=== PATIENT | female | born 1950 | race Caucasian/White ===

== ENCOUNTER 2019-08-13 11:55 | Emergency (ER) | payer MEDICARE, BC, SELFPAY ==
[2019-08-13 11:57] VITALS: BP 146/87; PULSE 83; RESP 18; TEMP 36.3; O2SAT 96; BMI 27.3
[2019-08-13] MEDS: HYDROcodone Bitartrate/Apap 5/325 Tablet PO (12:12)
--- NOTE | 2019-08-13 12:14 | ED.VISSUMM ---
- ER Visit Summary Date of Service: 08/13/19 Chief Complaint: Fall History of Present Illness: The patient is a 69 F presenting after fall. Patient was walking on a sidewalk and missed a step and fell onto her right side. She did not hit her head or lose consciousness. She complains of right shoulder and right hip pain. She has been able to ambulate. Physical Examination: Vitals are stable. Patient is afebrile. Alert no acute distress. HEENT exam is unremarkable. Neck is nontender Lungs are clear and equal bilaterally. Heart is regular rate and rhythm. Abdomen is soft nontender nondistended. Extremities diffuse right shoulder tenderness, mild right hip tenderness. Abrasion right elbow with no bony tenderness. Skin is warm and dry. No focal neurologic deficit. Remainder of exam is unremarkable. Emergency Department Course and Treatment: Patient declined tetanus immunization. Abrasion was cleaned and dressed. Right hip x-ray shows age consistent right hip arthrosis, no demonstrated fracture or suspicious osseous lesion. Right shoulder x-ray shows acute nondisplaced right humeral head fracture suspected but not confirmed. Glenohumeral and acromioclavicular joint arthrosis. Patient was given a sling. She is given prescription for [place]. She lives in [place] and will follow-up with her primary care physician for orthopedic referral. Advised return to ED for worsening complaints. Disposition: Discharge home Impression: Right nondisplaced humeral head fracture status post mechanical fall This note was generated with [employer] dictation software. It may contain incorrect words, spelling, and punctuation that were not noted in review of the chart prior to signing ED Disposition - Plan for ED Patient: Referrals: Laura Robin,Out of [Primary Care Provider] -
--- NOTE | 2019-08-13 12:38 | RAD_ITS ---
STUDY: X-RAY - RIGHT SHOULDER REASON FOR EXAM: Female, 69 years old. FALL ON STEPS WITH INJURY TO RIGHT SHOULDER/ARM AND RIGHT HIP. ABLE TO AMBULATE APPROPRIATELY. UNABLE TO MOVE/LIFT RIGHT ARM TECHNIQUE: 2 view(s) of the shoulder. COMPARISON: None. FINDINGS: There is mild degenerative arthrosis of the glenohumeral articulation. There is degenerative arthrosis of the acromioclavicular joint without inferior osseous spur formation. Normal acromion. There is demineralization of the humerus and visualized osseous structures. There is cortical irregularity in the lateral aspect of the humeral head with associated contour irregularity suggesting an acute fracture is present. The soft tissue structures are unremarkable. Normal visualized pulmonary apex. RAD/Shoulder min 2 Views IMPRESSION: Acute nondisplaced right humeral head fracture suspected but not confirmed Glenohumeral and acromioclavicular joint arthrosis Electronically Signed: Oscar Dickey MD at 12:54 EDT , Service support ,
--- NOTE | 2019-08-13 12:38 | RAD_ITS ---
STUDY: X-RAY - PELVIS AND RIGHT HIP REASON FOR EXAM: Female, 69 years old. Pain after fall TECHNIQUE: 3 views of the pelvis and hip. COMPARISON: None. FINDINGS: There is a non-specific bowel gas pattern. Normal visualized soft tissue structures. Normal bilateral iliac wings, sacroiliac joints and visualized sacrum. Normal bilateral superior and inferior pubic rami. Normal pubic symphysis. Normal bilateral ischial tuberosities. Normal visualized femoral head. Normal acetabulum. There is mild articular joint space narrowing of the hip. Limited AP view of the left hip shows similar arthritic changes RAD/HIP, UNI W/ Pelvis 2-3 Views IMPRESSION: Age consistent right hip arthrosis, no demonstrated fracture or suspicious osseous lesion Electronically Signed: Oscar Dickey MD at 12:52 EDT , Service support ,
--- NOTE | 2019-08-13 13:39 | DCINST.ED_ITS ---
ED Disposition - Plan for ED Patient: Instructions: ED Mechanical Fall, ED Fracture Upper Extremity Prescriptions: Hydrocodone Bitart/Apap 5-325 [[place] 5MG-325MG] 1 tablet PO Q6H PRN PRN 3 Days #10 tablet PRN Reason: Pain Referrals: [facility],Out of [Primary Care Provider] -
== END 2019-08-13 14:10 | disposition home or self-care (01) ==
LOC: ED 13:54
PROVIDERS: Emergency Provider Emergency Medicine
DX: S42.301A Unspecified fracture of shaft of humerus, right arm, initial encounter for closed fracture (principal); W10.9XXA Fall (on) (from) unspecified stairs and steps, initial encounter
CPT/HCPCS: 73030; 73502; 99283

== ENCOUNTER 2021-11-19 09:45 | Emergency (ER) | payer MEDICARE, BC, SELFPAY ==
[2021-11-19 09:46] VITALS: BP 113/44; PULSE 77; RESP 18; TEMP 36.6; O2SAT 98; BMI 24.5
--- NOTE | 2021-11-19 10:13 | EDS_ITS ---
HPI History of Present Illness HPI Narrative: Patient presents with right hip pain that began after a fall last night. Patient states she was able to get up and ambulate after the fall last night. Patient states she slipped on sauce that she spilled onto a wooden floor. Patient denies any head injury or loss of consciousness. Patient states her pain is better with rest. Patient states her pain is worse whenever she tries to move or ambulate. Patient denies any paresthesias or weakness. Patient denies any other injuries. Chief Complaint: Lower Extremity Injury Informant: patient Occured/Mechanism Mechanism/Context: Yes fall Onset/Context/Timing Onset: Yesterday Context: Sudden Onset Timing: Continuous Quality of Pain: Sharp Location: Right hip Worsened by: Movement, ambulation Relieved by: Rest Associated Symptoms Associated Symptoms: Negative for Parasthesia, Weakness or Loss of Funtion PFSH [facility] Medical History (Updated 11/19/21 @ 11:[address] Quinten Deleon DO) Afib Congestive heart failure Diabetes Hypercholesteremia Hypertension Hypertension Home Medications apixaban 5 mg tablet (Eliquis) 5 mg PO DAILY 11/19/21 [History Last Taken Unknown] atorvastatin 20 mg tablet 20 mg PO QHS 11/19/21 [History Last Taken Unknown] carvedilol 3.125 mg tablet 3.125 mg PO DAILY 11/19/21 [History Last Taken Unknown] carvedilol 6.25 mg tablet 6.25 mg PO DAILY 11/19/21 [History Last Taken Unknown] fenofibrate 160 mg tablet 160 mg PO DAILY 11/19/21 [History Last Taken Unknown] furosemide 40 mg tablet 40 mg PO DAILY 11/19/21 [History Last Taken Unknown] irbesartan 300 mg tablet 300 mg PO DAILY 11/19/21 [History Last Taken Unknown] Allergy/AdvReac Type Severity Reaction Status Date / Time No Known Allergies Allergy Verified 11/19/21 09:48 Surgical History (Updated 11/19/21 @ 10:[address] Quinten Deleon DO) History of herniorrhaphy Hx of cholecystectomy Hx of heart artery stent Hx of kyphoplasty Social History Smoking Status: Never smoker ROS ROS ED Constitutional Constitutional ED: Denies chills or fever(s) Eyes Eyes: Denies blurry vision or change in vision ENT ENT ED: Denies rhinorrhea or sore throat Cardiovascular Cardiovascular: Denies chest pain or palpitations Respiratory/Chest Respiratory/Chest: Denies cough or dyspnea Gastrointestinal Gastrointestinal: Denies nausea or vomiting Genitourinary Genitourinary ED: Denies dysuria or hematuria Musculoskeletal Musculoskeletal: Denies back pain or neck pain Integumentary Denies abscess or rash Neurologic Neurologic: Denies headache(s) or weakness Allergic/Immunologic Allergic/Immunologic ED: Denies mouth swelling or urticaria EXAM Physical Exam Const Vital Signs: 11/19/21 09:46 Temperature 97.9 F Temperature Source Temporal Pulse Rate 77 Respiratory Rate 18 Blood Pressure 113/44 L Blood Pressure Mean 67 Pulse Ox 98 Oxygen Delivery Method Room Air Positive well nourished and well developed General Appearance ED: well developed and NAD HEENT Reports moist mucous membranes Neck full ROM and supple Extremity Extremity Narrative: There is tenderness over the posterior and lateral aspects of the right hip. There is no obvious deformity noted. Range of motion was limited in all motions of the right hip secondary to pain. Pedal pulses are equal bilaterally. Sensation was intact to light touch bilaterally in the lower extremities. Strength is 5/5 bilaterally in the lower extremities. Neuro oriented x3, CN's II-XII intact bilaterally, moves all extremities and no sensory deficits noted Sensorium / Orientation: alert Motor Exam: strength 5/5 throughout Psych mental status grossly normal MDM MDM MDM Narrative Medical decision making narrative: Patient was given injection of morphine here. X-rays of the right hip were obtained. There are 3 views. On my interpretation, there is no acute fracture or dislocation. There are some degenerative changes noted. There is a questionable old avulsion off the greater trochanter. Radiologist also interpreted the x-ray and agrees. Patient was able to ambulate here in the emergency department without difficulty. Patient was instructed to use ice. Patient was instructed to use Tylenol or ibuprofen as needed for pain. Patient was instructed to follow-up with her primary care physician in 5 to 7 days. Patient understood and was agreeable with the plan. All questions were answered. Radiography Diagnostic Testing: Clinical Impression(s) from Imaging Studies Hip/Pelvis X-Ray 11/19/21 10:17 IMPRESSION: Spurring with mild irregularity and possible small avulsion of the greater trochanter of the proximal femur. Electronically Signed: Chapincito Olvera MD at 10:55 EDT , Discharge Plan Triage Chief Complaint: Lower Extremity Injury ED Provider: Quinten Deleon Dx/Rx/DC Orders Clinical Impression: Contusion of right hip, initial encounter, Fall Instructions: ED Hip Contusion Prescriptions: No Action furosemide 40 mg tablet 40 mg PO DAILY carvedilol 6.25 mg tablet 6.25 mg PO DAILY atorvastatin 20 mg tablet 20 mg PO QHS carvedilol 3.125 mg tablet 3.125 mg PO DAILY irbesartan 300 mg tablet 300 mg PO DAILY fenofibrate 160 mg tablet 160 mg PO DAILY Eliquis 5 mg tablet 5 mg PO DAILY Primary Care Provider: Care Physician,No Primary Referrals: Care Physician,No Primary [Primary Care Provider] - Doctor,Your [Non-Staff] - 5-7 Days Disposition Disposition: Home, Self Care
--- NOTE | 2021-11-19 10:17 | RAD_ITS ---
STUDY: X-RAY - PELVIS AND RIGHT HIP REASON FOR EXAM: Female, 71 years old. Injury/Pain TECHNIQUE: 3 views of the pelvis and hip. COMPARISON: August 13, 2019 FINDINGS: There is a normal bowel gas pattern. Normal visualized soft tissue structures. There is diffuse demineralization of the osseous structures. Normal bilateral iliac wings, sacroiliac joints and visualized sacrum. Normal bilateral superior and inferior pubic rami. Normal pubic symphysis. Normal bilateral ischial tuberosities. Normal visualized femoral head. There is mild spurring the mild irregularity of the greater trochanter. Normal acetabulum. Normal hip joint. RAD/HIP, UNI W/ Pelvis 2-3 Views IMPRESSION: Spurring with mild irregularity and possible small avulsion of the greater trochanter of the proximal femur. Electronically Signed: Chapincito Olvera MD at 10:55 EDT ,
[2021-11-19] MEDS: Morphine 4 MG/ML Syringe IM (10:22)
== END 2021-11-19 11:45 | disposition home or self-care (01) ==
PROVIDERS: Emergency Provider Emergency Medicine; Visit Provider Emergency Medicine
DX: S70.01XA Contusion of right hip, initial encounter (principal); I11.0 Hypertensive heart disease with heart failure; I50.9 Heart failure, unspecified; I48.91 Unspecified atrial fibrillation; E78.00 Pure hypercholesterolemia, unspecified; Z79.01 Long term (current) use of anticoagulants; Z79.899 Other long term (current) drug therapy; W19.XXXA Unspecified fall, initial encounter; Z95.5 Presence of coronary angioplasty implant and graft
CPT/HCPCS: 96372; 99282; 73502

== ENCOUNTER 2021-11-20 21:55 | Inpatient (IN) | payer MEDICARE, BC, SELFPAY ==
[2021-11-20 21:56] VITALS: BP 118/57; PULSE 65; RESP 16; TEMP 36.7; O2SAT 98; BMI 25.5
--- NOTE | 2021-11-20 22:29 | CT_ITS ---
EXAM: CT PELVIS WITHOUT INTRAVENOUS CONTRAST CLINICAL INDICATION: fall - right pelvis/hip pain -- please scan through lesser trochanter TECHNIQUE: Helically acquired images were obtained of the pelvis without intravenous contrast. This CT exam was performed using one or more of the following dose reduction techniques: automated exposure control, adjustment of the mA and/or kV according to patient size, and/or use of iterative reconstruction technique. This report was created using [employer] report generation technology. COMPARISON: Plain film from 11/19/2021 FINDINGS: BOWEL: Unremarkable as visualized. No bowel distention. No focal inflammatory change. APPENDIX: No evidence of acute appendicitis. INTRAPERITONEAL SPACE: Unremarkable. No ascites or other fluid collection. No free air. BLADDER: Unremarkable. REPRODUCTIVE: Unremarkable as visualized. No mass. BONES/JOINTS: Probable tiny avulsion fracture from the tip of the greater trochanter of the proximal right femur. No suspicious lytic or blastic abnormality. SOFT TISSUES: Large intramuscular hematoma posterior to the right hip within the gluteal musculature, measuring approximately 11.5 x 8.6 x 6.1 cm. No pelvic wall hernia. LYMPH NODES: Unremarkable. No enlarged lymph nodes. CT/Pelvis without IV Contrast IMPRESSION: 1. Large intramuscular hematoma posterior to the right hip within the gluteal musculature, measuring approximately 11.5 x 8.6 x 6.1 cm. 2. Probable tiny avulsion fracture from the tip of the greater trochanter of the proximal right femur. Electronically Signed: Kye Cervantes MD at 23:08 EDT ,
--- NOTE | 2021-11-20 22:31 | EX.ED.DYSGE1 ---
HPI History of Present Illness Chief Complaint: Lower Extremity Injury Informant: patient Onset/Context/Timing Onset: Days (2 days ago) Context: Gradual Onset Timing: Waxes and wanes Current Severity: Moderate Maximum Severity: Severe Narrative Narrative: Patient presents secondary to continued right hip pain. She fell 2 days ago landing on her right hip. She was seen in the emergency room yesterday where x-rays showed a possible avulsion fracture off the greater trochanter. She was able to ambulate with her walker. She states since going home she continues to have severe pain in her right hip making it difficult for her to ambulate and get around. She tried ibuprofen today without improvement. [facility] Medical History Afib Congestive heart failure Diabetes Hypercholesteremia Hypertension Home Medications apixaban 5 mg tablet (Eliquis) 5 mg PO DAILY 11/19/21 [History Last Taken Unknown] atorvastatin 20 mg tablet 20 mg PO QHS 11/19/21 [History Last Taken Unknown] carvedilol 3.125 mg tablet 3.125 mg PO DAILY 11/19/21 [History Last Taken Unknown] carvedilol 6.25 mg tablet 6.25 mg PO DAILY 11/19/21 [History Last Taken Unknown] fenofibrate 160 mg tablet 160 mg PO DAILY 11/19/21 [History Last Taken Unknown] furosemide 40 mg tablet 40 mg PO DAILY 11/19/21 [History Last Taken Unknown] irbesartan 300 mg tablet 300 mg PO DAILY 11/19/21 [History Last Taken Unknown] Allergy/AdvReac Type Severity Reaction Status Date / Time No Known Allergies Allergy Verified 11/20/21 21:58 Surgical History History of herniorrhaphy Hx of cholecystectomy Hx of heart artery stent Hx of kyphoplasty Social History Smoking Status: Never smoker ROS ROS ED Constitutional Constitutional ED: Denies chills or fever(s) Eyes Eyes: Denies change in vision or discharge from eye(s) ENT ENT ED: Denies discharge from eye(s), rhinorrhea or sore throat Cardiovascular Cardiovascular: Denies chest pain or palpitations Respiratory/Chest Respiratory/Chest: Denies cough or dyspnea Gastrointestinal Gastrointestinal: Denies abdominal pain, diarrhea, nausea or vomiting Genitourinary Genitourinary ED: Denies difficulty urinating or dysuria Musculoskeletal Musculoskeletal: Reports extremity pain; Denies back pain Integumentary Denies Abrasions or rash Neurologic Neurologic: Denies headache(s) or weakness Psychiatric Psychiatric: Denies anxiety or depression Allergic/Immunologic Allergic/Immunologic ED: Denies lip swelling or urticaria EXAM Physical Exam Const Vital Signs: 11/20/21 21:56 Temperature 98.1 F Temperature Source Temporal Pulse Rate 65 Respiratory Rate 16 Blood Pressure 118/57 L Blood Pressure Mean 77 Pulse Ox 98 Oxygen Delivery Method Room Air Positive well nourished and well developed General Appearance ED: well developed HEENT Reports normocephalic and head/scalp atraumatic Eyes PERRL and EOMs intact bilaterally Neck supple Chest Wall inspection of chest normal and palpation of chest normal Resp normal respiratory effort and clear to auscultation bilaterally Cardio regular rate and regular rhythm GI normal to inspection, nondistended, normoactive bowel sounds GI Narrative: Tenderness palpation over the right side of the pelvis. No masses noted. No ecchymosis noted on the abdominal wall. Palpation: soft Extremity Extremity Narrative: Tender palpation over the greater trochanter of the right hip. Equal leg lengths. Strong distal pulses and normal sensation. Patient does have slow purposeful movement of her leg. Neuro oriented x3 and no sensory deficits noted Sensorium / Orientation: alert Psych mental status grossly normal Skin no rashes or lesions noted MDM MDM MDM Narrative Medical decision making narrative: Patient was given a dose of Dilaudid for pain control. Lab work obtained along with a CT scan of the pelvis and right hip. Lab Data Attestation: I reviewed the patient's lab results. Labs: Laboratory Results - last 24 hr 11/20/21 11/20/21 11/20/21 22:47 22:47 22:47 WBC 6.0 RBC 2.39 L Hgb 6.9 L Hct 21.7 L MCV 90.8 MCH 28.9 MCHC 31.8 L RDW Std Deviation 51.6 H RDW Coeff of Kateryna 15.6 H Plt Count 312 MPV 9.1 Immature Gran % (Auto) 0.700 Neut % (Auto) 71.3 H Lymph % (Auto) 18.7 L Stevens % (Auto) 8.3 Eos % (Auto) 0.7 Baso % (Auto) 0.3 Absolute Neuts (auto) 4.3 Absolute Lymphs (auto) 1.13 Nucleated RBC % 0 PT 18.0 H INR 1.5 APTT 29.1 Sodium 142 Potassium 4.6 Chloride 107 Carbon Dioxide 23.0 Anion Gap 12 BUN 66 H Creatinine 1.56 H Estim Creat Clear Calc 24.96 Est GFR (MDRD) Af Amer 42 L Est GFR (MDRD) Non-Af 35 L BUN/Creatinine Ratio 42.3 H Glucose 275 H Calcium 10.1 Radiography Diagnostic Testing: Clinical Impression(s) from Imaging Studies Pelvis CT 11/20/21 22:29 IMPRESSION: 1. Large intramuscular hematoma posterior to the right hip within the gluteal musculature, measuring approximately 11.5 x 8.6 x 6.1 cm. 2. Probable tiny avulsion fracture from the tip of the greater trochanter of the proximal right femur. Electronically Signed: Kye Cervantes MD at 23:08 EDT , Treatment and Re-Evaluation Narrative: Patient's white count is normal at 6.0. Hemoglobin is 6.9 and hematocrit is 21.7. She has not had previous labs at this hospital but I was able to find some prior labs on [facility]. On May 31 of this year her hemoglobin was 10.1. PT is 18.0 and INR is 1.5. PTT is normal. Chemistry studies significant for BUN of 66 and creatinine 1.56. Glucose is 275. Patient is a known diabetic. CT scan of the pelvis reveals a large intramuscular hematoma in the right hip measuring 11.5 x 8.6 x 6.1 cm. There is probably a tiny avulsion fracture from the tip of the greater trochanter. Patient's primary pain is over the right gluteal region. EKG is obtained and patient is currently in sinus rhythm 82 bpm with no ischemia. Left bundle branch block is noted. Patient states that she has her heart rhythm checked frequently and she has not been in [facility] this year. I did recommend hospital admission for pain control as well as holding her Eliquis and repeating her CBC. I will speak with the hospitalist. Discharge Plan Triage Chief Complaint: Lower Extremity Injury ED Provider: Gabriella Norris Dx/Rx/DC Orders Clinical Impression: Fall, Hematoma, Anemia, Acute pain of right hip Prescriptions: No Action furosemide 40 mg tablet 40 mg PO DAILY carvedilol 6.25 mg tablet 6.25 mg PO DAILY atorvastatin 20 mg tablet 20 mg PO QHS carvedilol 3.125 mg tablet 3.125 mg PO DAILY irbesartan 300 mg tablet 300 mg PO DAILY fenofibrate 160 mg tablet 160 mg PO DAILY Eliquis 5 mg tablet 5 mg PO DAILY Primary Care Provider: Care Physician,No Primary Referrals: Care Physician,No Primary [Primary Care Provider] - Disposition Disposition: Acute Care Hospital [facility]
[2021-11-20] MEDS: Ondansetron 4 MG/2 ML Vial IV (22:38)
[2021-11-20] MEDS: HYDROmorphone 1 MG/ML Syringe 0.5 MG IV (22:38)
[2021-11-20 22:53] LABS: Absolute Lymphocyte Count 1.13 X10^3/uL (0.83-4.51); Absolute Neutrophil Count 4.3 X10^3/uL (2.0-7.7); Basophil# 0.02 X10^3/uL; Basophil% 0.3 % (0-1); Eosinophil# 0.04 X10^3/uL; Eosinophils% 0.7 % (0-5); Hematocrit 21.7 % (37-47); Hemoglobin 6.9 g/dL (12.0-15.0); Lymphocyte # 1.13 X10^3/ul (0.83-4.51); Lymphocyte % 18.7 % (19-41); Mean Corp Hgb Conc 31.8 g/dL (32-36); Mean Corpuscular Hgb 28.9 pg (27.0-32.0); Mean Corpuscular Volume 90.8 fL (81-99); Mean Platelet Vol. 9.1 fl (6.2-12.0); Monocyte% 8.3 % (0-10); NRBC Flagged by Analyzer 0 % (0-5); Neutrophil % 71.3 % (47-70); Platelet Count 312 K/mm3 (150-450); RBC Distribution Width CV 15.6 % (11.6-14.6); RBC Distribution Width SD 51.6 fl (35.1-43.9); Red Blood Count 2.39 M/mm3 (4.2-5.4)
[2021-11-20 23:07] LABS: International Normalized Ratio 1.5
[2021-11-20 23:08] LABS: Partial Thromboplast Time 29.1 Seconds (24.1-36.2)
[2021-11-20 23:18] LABS: Anion Gap 12 (5-15); BUN 66 mg/dL (7-18); BUN/Creat Ratio 42.3 RATIO (10-20); Calcium,Total 10.1 mg/dL (8.5-10.1); Chloride 107 mmol/L (98-107); Creatinine, Serum 1.56 mg/dL (0.55-1.02); EST Glomerular Filtration Rate 35 mL/min (>60); Est Glom Filt Rate - Afr Amer 42 mL/min (>60); Estimated Creatinine Clearance 24.96 ml/min; Glucose 275 mg/dL (74-106); Potassium 4.6 mmol/L (3.5-5.1); Sodium Level 142 mmol/L (136-145)
[2021-11-20 23:33] VITALS: BP 115/43; PULSE 69; RESP 16; O2SAT 98
[2021-11-20 23:57] VITALS: BP 115/43; PULSE 69; RESP 16; TEMP 36.7; O2SAT 98
[2021-11-21] VITALS (22 sets, daily range): BP systolic 98–128; BP diastolic 46–84; PULSE 71–86; RESP 16–20; TEMP 36.4–37.3; O2SAT 92–98; BMI 24.5
--- NOTE | 2021-11-21 00:07 | PCM.HP.STD ---
Documented by User: FILIPE Carmona 11/21/21 00:28 HPI - General General Date of Admission: 11/21/21 Date of Service: 11/21/21 Chief Complaint: Right hip pain HPI Narrative PHUONG CARY, is a 71 F who presents with complaints of right hip pain. Patient had a fall yesterday and was seen in the ER where she was noted to have a avulsion fracture to her right trochanter. Patient was sent home as she was able to ambulate at that time. Patient returned to the ER today due to increased pain and difficulty ambulating. Patient CT demonstrated a large hematoma in the right gluteus. Patient reports that she also has a medical history of atrial fibrillation, hyperlipidemia, CAD, hypertension. [facility] Medical History Afib Congestive heart failure Diabetes Hypercholesteremia Hypertension Home Medications apixaban 5 mg tablet (Eliquis) 5 mg PO DAILY 11/19/21 [History Last Taken Unknown] atorvastatin 20 mg tablet 20 mg PO QHS 11/19/21 [History Last Taken Unknown] carvedilol 3.125 mg tablet 3.125 mg PO DAILY 11/19/21 [History Last Taken Unknown] carvedilol 6.25 mg tablet 6.25 mg PO DAILY 11/19/21 [History Last Taken Unknown] fenofibrate 160 mg tablet 160 mg PO DAILY 11/19/21 [History Last Taken Unknown] furosemide 40 mg tablet 40 mg PO DAILY 11/19/21 [History Last Taken Unknown] irbesartan 300 mg tablet 300 mg PO DAILY 11/19/21 [History Last Taken Unknown] amiodarone 200 mg tablet mg 11/21/21 [History Last Taken Unknown] glimepiride 1 mg tablet mg 11/21/21 [History Last Taken Unknown] metformin 1,000 mg tablet mg 11/21/21 [History Last Taken Unknown] Allergy/AdvReac Type Severity Reaction Status Date / Time No Known Allergies Allergy Verified 11/20/21 21:58 Family History Other COPD (chronic obstructive pulmonary disease) Heart disease Surgical History History of herniorrhaphy Hx of cholecystectomy Hx of heart artery stent Hx of kyphoplasty Social History Smoking Status: Never smoker ROS Constitutional Constitutional: Denies anorexia, chills, fatigue, fever(s), malaise or weakness Cardiovascular Cardiovascular: Denies chest pain, edema, palpitations or syncope Respiratory/Chest Respiratory/Chest: Denies cough, shortness of breath at rest, shortness of breath with exertion or wheezing Gastrointestinal Gastrointestinal: Denies abdominal pain, constipation, diarrhea, nausea or vomiting Genitourinary Genitourinary: Denies dysuria Musculoskeletal Musculoskeletal: Reports difficulty walking and extremity pain; Denies back pain Neurologic Neurologic: Denies abnormal gait, abnormal speech, confusion or dizziness Psychiatric Psychiatric: Denies anxiety or depression Endocrine Endocrinology: Denies change in body appearance Hematologic/Lymphatic Hematologic/Lymphatic: Reports anemia and easy bleeding Vital Signs Vital Signs Vital Signs: 11/20/21 21:56 11/20/21 23:33 11/20/21 23:57 Temperature 98.1 F 98.1 F Temperature Source Temporal Temporal Pulse Rate 65 69 69 Respiratory Rate 16 16 16 Blood Pressure 118/57 L 115/43 L 115/43 L Blood Pressure Mean 77 67 67 Pulse Ox 98 98 98 Oxygen Delivery Method Room Air Room Air Room Air Weight Weight: 135 lb 2.294 oz Body Mass Index (BMI) 25.5 Physical Exam Const alert, oriented x3 and no apparent distress General Appearance: cooperative HEENT normocephalic and head/scalp atraumatic Eyes conjunctivae normal and no scleral icterus Neck supple General: trachea midline Resp normal respiratory effort, normal air movement and clear to auscultation bilaterally Effort and Inspection: able to speak in complete sentences and symmetric chest movement Cardio regular rate, regular rhythm, S1 normal heart sound, S2 normal heart sound and peripheral pulses 2+ throughout GI normal to inspection, nondistended, normoactive bowel sounds, soft to palpation and non-tender Extremity normal capillary refill and no clubbing, cyanosis or edema Extremity Narrative: Tenderness with ambulation to the right hip as well as tenderness with palpation of the right posterior hip and buttock Skin Lesions: no lesions Rashes: no rashes Neuro no focal motor deficits and no sensory deficits noted Speech: speech normal Psych thought process normal, cooperative and affect normal Appearance: appropriate Results Lab / Micro Data Result Diagrams: 11/20/21 22:47 11/20/21 22:47 Labs: Laboratory Results - last 24 hr 11/20/21 22:47: WBC 6.0, RBC 2.39 L, Hgb 6.9 L, Hct 21.7 L, MCV 90.8, MCH 28.9, MCHC 31.8 L, RDW Std Deviation 51.6 H, RDW Coeff of Kateryna 15.6 H, Plt Count 312, MPV 9.1, Immature Gran % (Auto) 0.700, Neut % (Auto) 71.3 H, Lymph % (Auto) 18.7 L, [place] % (Auto) 8.3, Eos % (Auto) 0.7, Baso % (Auto) 0.3, Absolute Neuts (auto) 4.3, Absolute Lymphs (auto) 1.13, Nucleated RBC % 0 11/20/21 22:47: PT 18.0 H, INR 1.5, APTT 29.1 11/20/21 22:47: Sodium 142, Potassium 4.6, Chloride 107, Carbon Dioxide 23.0, Anion Gap 12, BUN 66 H, Creatinine 1.56 H, Estim Creat Clear Calc 24.96, Est GFR (MDRD) Af Amer 42 L, Est GFR (MDRD) Non-Af 35 L, BUN/Creatinine Ratio 42.3 H, Glucose 275 H, Calcium 10.[address] 11/20/21 22:29 IMPRESSION: 1. Large intramuscular hematoma posterior to the right hip within the gluteal musculature, measuring approximately 11.5 x 8.6 x 6.1 cm. 2. Probable tiny avulsion fracture from the tip of the greater trochanter of the proximal right femur. Electronically Signed: Kye Cervantes MD at 23:08 EDT , Assessment & Plan Assessment/Plan (1) Contusion of right hip, initial encounter: (2) Hematoma: PLAN: Plan 1. Acute pain of the right hip secondary to gluteal hematoma and avulsion fracture of the right trochanter -Admit to PCU -Consult vascular, case discussed with Dr. Hayes by ER physician, will follow -Pain management regimen ordered -PT and OT to eval and treat -Encourage incentive spirometry -CBC and BMP in a.m. 2. Acute anemia secondary to gluteal hematoma -Patient on Eliquis for paroxysmal atrial fibrillation, will hold at this time -Hemoglobin 6.9, will transfuse 1 unit packed red blood cells -CBC in a.m. -Patient borderline hypotensive at this time we will hold hypertensive medications 3. Paroxysmal atrial fibrillation -Eliquis on hold secondary to hematoma 4. Hypertension/CAD/hyperlipidemia -We will hold all antihypertensive medications at this time secondary to borderline hypotension secondary to acute blood loss -Continue atorvastatin and fenofibrate -As patient has CAD will have a target hemoglobin of 8.0 -Cardiac diet ordered DVT prophylaxis-SCDs This patient was seen by FILIPE Carmona under the supervision of Dr. Dunbar. 29 minutes spent in clinical coordination of patient's plan of care. Documented by User: Dr. Kimo Dunbar MD 11/21/21 01:35 HPI - General General Date of Admission: 11/21/21 [facility] Medical History Afib Congestive heart failure Diabetes Hypercholesteremia Hypertension Home Medications apixaban 5 mg tablet (Eliquis) 5 mg PO DAILY 11/19/21 [History Last Taken Unknown] atorvastatin 20 mg tablet 20 mg PO QHS 11/19/21 [History Last Taken Unknown] carvedilol 3.125 mg tablet 3.125 mg PO DAILY 11/19/21 [History Last Taken Unknown] carvedilol 6.25 mg tablet 6.25 mg PO DAILY 11/19/21 [History Last Taken Unknown] fenofibrate 160 mg tablet 160 mg PO DAILY 11/19/21 [History Last Taken Unknown] furosemide 40 mg tablet 40 mg PO DAILY 11/19/21 [History Last Taken Unknown] irbesartan 300 mg tablet 300 mg PO DAILY 11/19/21 [History Last Taken Unknown] amiodarone 200 mg tablet mg 11/21/21 [History Last Taken Unknown] glimepiride 1 mg tablet mg 11/21/21 [History Last Taken Unknown] metformin 1,000 mg tablet mg 11/21/21 [History Last Taken Unknown] Allergy/AdvReac Type Severity Reaction Status Date / Time No Known Allergies Allergy Verified 11/20/21 21:58 Family History Other COPD (chronic obstructive pulmonary disease) Heart disease Surgical History History of herniorrhaphy Hx of cholecystectomy Hx of heart artery stent Hx of kyphoplasty Social History Smoking Status: Never smoker Results Lab / Micro Data Result Diagrams: 11/20/21 22:47 11/20/21 22:47 Assessment & Plan Assessment/Plan (1) Contusion of right hip, initial encounter: (2) Hematoma: Charges/Coding Addendum Addendum: Patient was seen and examined independently. I agree with assessment and plan by GIL CarmonaC Patient is 71-year-old female with a significant history of paroxysmal A. fib on Eliquis; and CAD status post multiple stents (4 to 5) stents who presents to emergency department with excruciating pain at her right hip after falling 2 days before presentation. Reportedly patient fell on [employer]. Patient and her POA lives in [place] and they have been visiting the [place], [place] area multiple times to help prepare and sell a relative's house. She was evaluated at the ED a day before this presentation and at that time she could ambulate. She was subsequently discharged home. On this presentation (a second return to the ED) chelle reports extreme difficulty with ambulation secondary to pain. She reports being unable to sleep because she sleeps on an uncomfortable surface which is further aggravated by her right hip pain. On her first emergency department visit she was diagnosed with a possible small avulsion of the greater trochanter of the proximal femur. Physical exam: General: Well-nourished, well-developed. Head: Normocephalic, atraumatic, no tenderness Eyes: Vision is grossly intact. EOMI ENT, no trauma, moist mucous membranes, no rhinorrhea Neck: Nontender, full range of motion, no spinal tenderness, deformities, step-off CVS: Regular rate and rhythm. S1-S2 present. No murmur, gallop or rub. Respiratory : clear to auscultation bilaterally, chest wall nontender, no wheezing Abdomen: Soft, nontender, nondistended, normal bowel sounds, no masses : Deferred Back: Nontender, no CVA tenderness, no midline spinal tenderness, deformities, step-offs Extremities: R posterior hip tenderness. Left hip nontender Skin: Normal color, no trauma, abrasions Neuro: Alert, oriented, cranial nerves II through XII grossly intact. Psychiatry: Normal mood. Normal affect. Not depressed. Not anxious. Assessment and plan Acute pain of right hip right gluteal muscular hematoma and avulsion fracture of greater trochanter of right femur Hemoglobin on presentation was 6.9. Review of community records shows that hemoglobin on 05/31/[address] (on presentation, 11/20/2021) was visualized and independently interpreted and I agree with their interpretation of large intramuscular hematoma; probable tiny avulsion fracture of the great trochanter of the proximal right femur. Hip and pelvis x-ray a day before presentation( 11/19/2021) showed possible small avulsion of the greater trochanter of the proximal femur Hold Eliquis. Initially patient did not want any blood transfusion secondary to possible infection from COVID. Patient stated that she is against the COVID vaccination. Upon education patient is willing to receive blood. Ordered to transfuse 1 unit of packed red blood cells. Trend H&H. Oxycodone as needed moving.. Bowel protocol in place. As needed Zofran IV for antibiotics Emergency department doctor discussed the case with vascular surgeon, Dr. Hayes. Ischemic cardiomyopathy Review: She requested an echocardiogram was done on 06/27/2021. Echocardiogram showed ejection fraction of 25 to 30%. Stable Hold guideline directed medical therapy of carvedilol, LOAN receptor emilia and Lasix secondary to soft blood pressures in the setting of bleeding. 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 His creatinine on presentation was 1.56. BUN on presentation is 66. His creatinine on 05/31/2021 at outside hospital was 0.8. BUN at that time was 32. BUN/creatinine is 42. Likely prerenal. ARB held. Avoid nephrotoxins. Lasix held. Will avoid IV hydration at this time. Packed red blood cells ordered as above. Trend BMP. Prediabetes Patient with hyperglycemia on presentation Metformin held Community records reviewed showed that A1c on 09/02/2021 was 6.3. Monitor Accu-Cheks Correction scale insulin ordered. DVT prophylaxis: SCDs ordered. Patient power of trust and estates attorney is her niece: Hayley Steele (phone number [phone]) Thirty-five (35) minutes spent independently seeing patient, discussing case with patient and discussing case at the bedside and reviewing of charts. Visit Charges OBSV E&M: [id number] Initial observation care L3
[2021-11-21 00:58] LABS: Hematocrit 19.3 % (37-47)
[2021-11-21] MEDS: oxyCODONE 5 MG Tablet 10 MG PO (01:53)
[2021-11-21] MEDS: MELATONIN 3 MG TABLET PO (01:53)
[2021-11-21] MEDS: 0.9% Saline Lock 10 ML Syringe IV ×3 (02:28→15:17)
[2021-11-21 03:05] LABS: Bedside Glucose 177 mg/dL (74-106)
[2021-11-21 06:37] LABS: Absolute Lymphocyte Count 0.98 X10^3/uL (0.83-4.51); Absolute Neutrophil Count 4.2 X10^3/uL (2.0-7.7); Basophil# 0.04 X10^3/uL; Basophil% 0.7 % (0-1); Eosinophil# 0.07 X10^3/uL; Eosinophils% 1.2 % (0-5); Hematocrit 22.3 % (37-47); Hemoglobin 6.8 g/dL (12.0-15.0); Lymphocyte # 0.98 X10^3/ul (0.83-4.51); Lymphocyte % 16.9 % (19-41); Mean Corp Hgb Conc 30.5 g/dL (32-36); Mean Corpuscular Hgb 28.7 pg (27.0-32.0); Mean Corpuscular Volume 94.1 fL (81-99); Mean Platelet Vol. 9.3 fl (6.2-12.0); Monocyte# 0.46 X10^3/uL; Monocyte% 7.9 % (0-10); NRBC Flagged by Analyzer 0 % (0-5); Neutrophil # 4.19 X10^3/uL (2.7-7.7); Neutrophil % 72.4 % (47-70); Platelet Count 275 K/mm3 (150-450); RBC Distribution Width CV 15.3 % (11.6-14.6); RBC Distribution Width SD 52.3 fl (35.1-43.9); Red Blood Count 2.37 M/mm3 (4.2-5.4); White Blood Count 5.8 K/mm3 (4.4-11.0)
[2021-11-21] MEDS: Insulin Lispro 100 UNIT/ML INSULN.PEN SC ×4 (06:53→21:11)
[2021-11-21 07:10] LABS: Bedside Glucose 181 mg/dL (74-106)
[2021-11-21 07:15] LABS: Anion Gap 8 (5-15); BUN 68 mg/dL (7-18); BUN/Creat Ratio 46.9 RATIO (10-20); Calcium,Total 9.8 mg/dL (8.5-10.1); Chloride 109 mmol/L (98-107); Creatinine, Serum 1.45 mg/dL (0.55-1.02); EST Glomerular Filtration Rate 38 mL/min (>60); Est Glom Filt Rate - Afr Amer 46 mL/min (>60); Estimated Creatinine Clearance 26.85 ml/min; Glucose 201 mg/dL (74-106); Potassium 4.8 mmol/L (3.5-5.1); Sodium Level 140 mmol/L (136-145)
--- NOTE | 2021-11-21 08:27 | NURSING ---
This RN called pt's pharmacy ([facility] in [place], [place]) and updated home medication list.
--- NOTE | 2021-11-21 10:52 | CASEMGMT ---
BRISSA MERRITT assessment: Face to Face with patient for initial transition planning/care coordination assessment. BRISSA MERRITT introduced self and role at [facility], pt voices understanding and consents to assessment. Pt is sitting up in bed in no distress on room air. Pt is A/Ox4 and answers all questions appropriately.? Care providers, pharmacy,?and demographics verified. ? Presentation: Fall a couple days ago, seen here, returned for increased pain Admitting dx: Hematoma, anemia PCP: Dr. Salmon in [place] Specialists: 2 cardiologists in [place] Preferred Pharmacy: [facility] Insurance: MCR A/B, [place] Prescription Benefit:?Yes Living Will/HPOA: Pt has LW/HPOA and is aware that they are not on file at [facility]. Pt states her niece, Deann Steele, is HPOA. LNOK: Deann Steele, niece/HPOA Living Arrangements: Pt lives with niece in [facility] and states no concerns at home. Pt is independent with ADL's. Pt states they have been coming up to [place] from [place] several times a month to clean out her brother's house. Pt states her brother in February 2021 and he was a hoarder and they have been working on house since then. Transportation: Pt states drives self and states no transportation concerns. DME/HHC: Pt has the following DME: cane, [employer], and grab bars. Pt states no need for any further DME. Pt states no hx of SNF but has had HHC in past. Pt states no concerns with going home at time of discharge. Pt is retired. Pt states does not smoke cigarettes or drink ETOH. Pt voices no further concerns/needs. CM to follow for any further discharge planning/needs. Advised pt to ask for CM if any further questions/concerns/needs arise, voices understanding. Pt Goal: Home ? Plan[place] BRISSA MERRITT
--- NOTE | 2021-11-21 12:03 | PN.HOSP_ITS ---
Subjective Subjective Ms. Noble is a 71y/o female who presented 11/21 03/23 R hip pain and was found to have a R gluteal hematoma. This morning she reports she is still having pain and stiffness making movement difficult but her pain is improving overall and she feels less swollen. She required oxycodone 10mg x1 overnight with adequate pain control reported. She denies any other source of bleeding. Denies PADILLA, changes in vision, no stuffy nose, sore throat. No CP or SOB. No numbness or tingling in extremities. Does report she had trouble with her left AC IV that caused some residual arm pain but since her R IV is being used she is feeling better. S/p 1 uprbc over night. Denies bowel or bladder changes/concerns. Eating well. Objective Data Objective Data Vital Signs: Vital Signs Temp Pulse Resp BP Pulse Ox O2 Del Method 97.9 F 79 17 122/48 H 97 Room Air 11/21/21 10:12 11/21/21 10:12 11/21/21 10:12 11/21/21 10:12 11/21/21 10:12 11/21/21 10:12 Oxygen Delivery Method Room Air Weight: 58.8 kg Body Mass Index (BMI) 24.5 Intake & Output: Intake and Output for Last 24 Hours 11/19/21 11/20/21 11/21/21 23:59 23:59 23:59 Intake Total 400 / 400 Output Total 200 / 200 Balance 200 / 200 Lab / Micro Data Result Diagrams: 11/21/21 06:30 11/21/21 06:30 Labs: Laboratory Results - last 24 hr 11/20/21 22:47: WBC 6.0, RBC 2.39 L, Hgb 6.9 L, Hct 21.7 L, MCV 90.8, MCH 28.9, MCHC 31.8 L, RDW Std Deviation 51.6 H, RDW Coeff of Kateryna 15.6 H, Plt Count 312, MPV 9.1, Immature Gran % (Auto) 0.700, Neut % (Auto) 71.3 H, Lymph % (Auto) 18.7 L, [place] % (Auto) 8.3, Eos % (Auto) 0.7, Baso % (Auto) 0.3, Absolute Neuts (auto) 4.3, Absolute Lymphs (auto) 1.13, Nucleated RBC % 0 11/20/21 22:47: PT 18.0 H, INR 1.5, APTT 29.1 11/20/21 22:47: Sodium 142, Potassium 4.6, Chloride 107, Carbon Dioxide 23.0, Anion Gap 12, BUN 66 H, Creatinine 1.56 H, Estim Creat Clear Calc 24.96, Est GFR (MDRD) Af Amer 42 L, Est GFR (MDRD) Non-Af 35 L, BUN/Creatinine Ratio 42.3 H, Glucose 275 H, Calcium 10.1 11/21/21 00:20: Hgb 6.0 L*, Hct 19.3 L 11/21/21 00:20: Blood Type O NEGATIVE, Antibody Screen NEGATIVE, Crossmatch See Detail 11/21/21 00:30: Crossmatch See Detail 11/21/21 02:37: POC Glucose 177 H 11/21/21 06:30: WBC 5.8, RBC 2.37 L, Hgb 6.8 L, Hct 22.3 L, MCV 94.1, MCH 28.7, MCHC 30.5 L, RDW Std Deviation 52.3 H, RDW Coeff of Kateryan 15.3 H, Plt Count 275, MPV 9.3, Immature Gran % (Auto) 0.900, Neut % (Auto) 72.4 H, Lymph % (Auto) 16.9 L, [place] % (Auto) 7.9, Eos % (Auto) 1.2, Baso % (Auto) 0.7, Absolute Neuts (auto) 4.2, Absolute Lymphs (auto) 0.98, Nucleated RBC % 0 11/21/21 06:30: Sodium 140, Potassium 4.8, Chloride 109 H, Carbon Dioxide 23.0, Anion Gap 8, BUN 68 H, Creatinine 1.45 H, Estim Creat Clear Calc 26.85, Est GFR (MDRD) Af Amer 46 L, Est GFR (MDRD) Non-Af 38 L, BUN/Creatinine Ratio 46.9 H, Glucose 201 H, Calcium 9.8 11/21/21 06:47: POC Glucose 181 H Radiography Diagnostic Testing: Radiology Impression Pelvis CT 11/20/21 22:29 IMPRESSION: 1. Large intramuscular hematoma posterior to the right hip within the gluteal musculature, measuring approximately 11.5 x 8.6 x 6.1 cm. 2. Probable tiny avulsion fracture from the tip of the greater trochanter of the proximal right femur. Electronically Signed: Kye Cervantes MD at 23:08 EDT , Physical Exam Const alert and oriented x3 HEENT moist oral mucous membranes Eyes Eyes Narrative: EOM grossly intact bilaterally Neck Neck Narrative: No overt abnormalities noted Resp normal respiratory effort and clear to auscultation bilaterally Cardio regular rate and regular rhythm GI normal to inspection, nondistended, normoactive bowel sounds Extremity Extremity Narrative: 5/5 strength in LLE, RLE 4/5 2/2 pain. No numbness or tingling, no swelling of extremities from knee down appreciated Skin Skin Narrative: No overt bruising noted superficially over R gluteal region at this time, though was ttp moderately Neuro oriented x3 Sensorium / Orientation: awake, alert and oriented to person Psych affect normal Assessment & Plan Assessment/Plan (1) Contusion of right hip region: (2) Hematoma: (3) Fall: (4) Anemia: (5) Acute pain of right hip: PLAN: Plan 1. Acute pain of the right hip secondary to gluteal hematoma and avulsion fracture of the right trochanter -Admit to PCU -Consult vascular, case discussed with Dr. Hayes by ER physician, will follow -Pain management regimen ordered, only required oxycodone 10mg x1 overnight, will consider deescalating regimen -PT and OT to eval and treat, pending recs Pain beginning to improve, only required 1x oxy overnight, will deescalate when appropriate 2. Acute anemia secondary to gluteal hematoma -Patient on Eliquis for paroxysmal atrial fibrillation, this has been held Intra gluteal hematoma, noted in on CT on presentation, measuring aprox 11.5x8.6x6.1 Vascular consulted -Hgb 6.9 on admission, trended to 6.0 and was 6.8 after 1uprbc Second unit of PRBC ordered, will check H&H post transfusion 3. Paroxysmal atrial fibrillation -Eliquis on hold secondary to hematoma BB held d/t relative hypotention on admission, will restart when able 4. Hypertension/CAD/hyperlipidemia -Antihtn held 2/2 low BP on admission, will restart as BP allows -Continue atorvastatin and fenofibrate -As patient has CAD will have a target hemoglobin of 8.0 -Cardiac diet ordered 5. DEEPTI vs CKD Cr 1.56 down to 1.45 Unclear baseline will obtain ulytes 6. DMII On glimepiride and metformin at home Given reduced kidney fxn with unclear baseline will hold at this time and proceed with SSI 7. Falls Pt endorses she slipped on barbecue sauce but has had several falls this past year (only one does she report was not mechanical) Ambulates with cane at baseline Await pt recs for d/c dispo when stable DVT prophylaxis-SCDs Lexy Patino MD 33 minutes spent in clinical coordination of patient's plan of care.
[2021-11-21 12:05] LABS: Bedside Glucose 210 mg/dL (74-106)
--- NOTE | 2021-11-21 13:11 | EX.PCM.CON.S ---
Assessment & Plan Assessment/Plan (1) Hematoma: PLAN: -CT images reviewed, large right gluteal muscle hematoma, deep to fascia -unlikely to requires surgery -serial h/h, transfuse a needed -recommend holding Eliquis for 10-14 days -will follow HPI Consult Data Date of Consult: 11/21/21 HPI Narrative HPI Narrative: PHUONG CARY, is a 71 F who presents after a mechanical fall onto her right buttock. Had progressively worsening pain and presented to ED yesterday where CT showed right gluteal hematoma. her Hgb was 6 and she is on Eliquis for a.fib. No prior embolic events, afib was transient once in February. Her pain has improved significantly since admission and her area of swelling is now soft. [facility] Medical History (Updated 11/21/21 @ 12:[address] Lexy Patino MD) Afib Congestive heart failure Diabetes Hypercholesteremia Hypertension Kidney stones Home Medications apixaban 5 mg tablet (Eliquis) 5 mg PO DAILY 11/19/21 [History Last Taken Unknown] atorvastatin 20 mg tablet 20 mg PO QHS 11/19/21 [History Last Taken Unknown] carvedilol 3.125 mg tablet 3.125 mg PO BID 11/19/21 [History Last Taken Unknown] carvedilol 6.25 mg tablet 6.25 mg PO BID 11/19/21 [History Last Taken Unknown] fenofibrate 160 mg tablet 160 mg PO DAILY 11/19/21 [History Last Taken Unknown] furosemide 40 mg tablet 40 mg PO DAILY 11/19/21 [History Last Taken Unknown] irbesartan 300 mg tablet 300 mg PO DAILY 11/19/21 [History Last Taken Unknown] amiodarone 200 mg tablet 200 mg DAILY 11/21/21 [History Last Taken 11/20/21] metformin 500 mg tablet,extended release 24 hr 1,000 mg PO DINNER 11/21/21 [History Last Taken Unknown] Allergy/AdvReac Type Severity Reaction Status Date / Time No Known Allergies Allergy Verified 11/20/21 21:58 Family History Other COPD (chronic obstructive pulmonary disease) Heart disease Surgical History History of herniorrhaphy Hx of cholecystectomy Hx of heart artery stent Hx of kyphoplasty Social History Smoking Status: Never smoker ROS Constitutional Constitutional: Denies chills, fever(s), frequent falls, lethargy or weakness Eyes Eyes: Denies blind spots, change in vision or loss of vision ENT HEENT: Denies bleeding gums, hoarseness or sore throat Cardiovascular Cardiovascular: Denies abdominal pain, bluish discoloration of hand/feet, chest pain with activity, claudication, cold extremities, cyanosis, dyspnea on exertion, erythema on extremities, irregular heart rhythm, leg edema, leg ulcers, numbness in extremities or weakness in extremities Respiratory/Chest Respiratory/Chest: Denies cough, excessive phlegm production, shortness of breath at rest, shortness of breath with exertion or wheezing Gastrointestinal Gastrointestinal: Denies anorexia, change in stool character, constipation, diarrhea, melena or rectal bleeding Genitourinary Genitourinary: Denies dysuria or hematuria Musculoskeletal Musculoskeletal: Denies abnormal gait Integumentary Integumentary: Reports other Details: ; Denies erythema, non-healing lesions or wounds Neurologic Neurologic: Denies abnormal speech, focal weakness, headache(s), loss of vision, numbness, paresthesias or sensory deficit Hematologic/Lymphatic Hematologic/Lymphatic: Denies easy bleeding, easy bruising or lymphadenopathy Physical Exam Const alert, oriented x3, no apparent distress and healthy appearing General Appearance: cooperative; Negative for combative or lethargic Orientation / Consciousness: awake Exam Limitations: no limitations HEENT Head and Scalp: normocephalic and atraumatic Eyes EOMs intact bilaterally General Eye: normal appearance of both eyes Neck full ROM, no lymphadenopathy, thyroid normal and No no carotid bruits General: trachea midline; Negative for lymphadenopathy or tenderness Thyroid: thyroid normal Lymph Lymphatic: Negative for no lymphadenopathy noted Resp normal respiratory effort, no use of accessory muscles and clear to auscultation bilaterally Effort and Inspection: Negative for labored, stridor or audible wheezes Cardio regular rate, regular rhythm and no murmurs Peripheral Pulses: brachial pulses present, radial pulses present, femoral pulses present, popliteal pulses present, posterior tibial pulses present and dorsalis pedis pulses present Back/Spine Cervical Spine: cervical ROM normal Extremity full ROM, normal capillary refill and no clubbing, cyanosis or edema Skin no rashes or lesions noted and no wounds Neuro oriented x3, CN's II-XII intact bilaterally, no focal motor deficits and no sensory deficits noted Psych thought process normal, cooperative, affect normal, speech normal and activity/motor behavior normal Lab / Micro Data Result Diagrams: 11/21/21 06:30 11/21/21 06:30 Labs: Laboratory Results - last 24 hr 11/20/21 22:47: WBC 6.0, RBC 2.39 L, Hgb 6.9 L, Hct 21.7 L, MCV 90.8, MCH 28.9, MCHC 31.8 L, RDW Std Deviation 51.6 H, RDW Coeff of Kateryna 15.6 H, Plt Count 312, MPV 9.1, Immature Gran % (Auto) 0.700, Neut % (Auto) 71.3 H, Lymph % (Auto) 18.7 L, [place] % (Auto) 8.3, Eos % (Auto) 0.7, Baso % (Auto) 0.3, Absolute Neuts (auto) 4.3, Absolute Lymphs (auto) 1.13, Nucleated RBC % 0 11/20/21 22:47: PT 18.0 H, INR 1.5, APTT 29.1 11/20/21 22:47: Sodium 142, Potassium 4.6, Chloride 107, Carbon Dioxide 23.0, Anion Gap 12, BUN 66 H, Creatinine 1.56 H, Estim Creat Clear Calc 24.96, Est GFR (MDRD) Af Amer 42 L, Est GFR (MDRD) Non-Af 35 L, BUN/Creatinine Ratio 42.3 H, Glucose 275 H, Calcium 10.1 11/21/21 00:20: Hgb 6.0 L*, Hct 19.3 L 11/21/21 00:20: Blood Type O NEGATIVE, Antibody Screen NEGATIVE, Crossmatch See Detail 11/21/21 00:30: Crossmatch See Detail 11/21/21 02:37: POC Glucose 177 H 11/21/21 06:30: WBC 5.8, RBC 2.37 L, Hgb 6.8 L, Hct 22.3 L, MCV 94.1, MCH 28.7, MCHC 30.5 L, RDW Std Deviation 52.3 H, RDW Coeff of Kateryna 15.3 H, Plt Count 275, MPV 9.3, Immature Gran % (Auto) 0.900, Neut % (Auto) 72.4 H, Lymph % (Auto) 16.9 L, [place] % (Auto) 7.9, Eos % (Auto) 1.2, Baso % (Auto) 0.7, Absolute Neuts (auto) 4.2, Absolute Lymphs (auto) 0.98, Nucleated RBC % 0 11/21/21 06:30: Sodium 140, Potassium 4.8, Chloride 109 H, Carbon Dioxide 23.0, Anion Gap 8, BUN 68 H, Creatinine 1.45 H, Estim Creat Clear Calc 26.85, Est GFR (MDRD) Af Amer 46 L, Est GFR (MDRD) Non-Af 38 L, BUN/Creatinine Ratio 46.9 H, Glucose 201 H, Calcium 9.8 11/21/21 06:47: POC Glucose 181 H 11/21/21 11:44: POC Glucose 210 H Radiology Impression Pelvis CT 11/20/21 22:29 IMPRESSION: 1. Large intramuscular hematoma posterior to the right hip within the gluteal musculature, measuring approximately 11.5 x 8.6 x 6.1 cm. 2. Probable tiny avulsion fracture from the tip of the greater trochanter of the proximal right femur. Electronically Signed: Kye Cervantes MD at 23:08 EDT ,
--- NOTE | 2021-11-21 14:56 | CHAPLAIN ---
Type of Pastoral Visit _x__ Initial Visit ___ Follow-up Visit ___ On-call Visit ___ General Patient Visit ___ Spiritual Assessment ___ Family Conference ___ Bereavement ___ Rapid Response ___ Code Blue ___ Other (describe below) Pastoral Care Referral From _x__ Patient ___ Family ___ Nurse ___ Physician ___ Access Services Representative ___ Director Product Development ___ Other (describe below) Sacrament/Intervention _x__ Active listening ___ Anointing ___ Confucianism ___ Bereavement ___ Communion _x__ Shanelle exploration ___ _x__ Life review _x__ Prayer ___ Reconciliation ___ Sacrament of Sick _x__ Supportive presence ___ Wedding ___ Other (describe below) Pastoral Comments patient is from [place] and was in town for [employer] business when she had a fall and resulting admission; pt is and has no children with very little family support; pt's brother earlier this year and she is attending to his affairs in this area; pt has suffered physical setbacks this year and says how much more can I take?; pt is tearful at times; pt has been involved in her christianity and has shanelle in God but admits that things are not getting any better; pt says she has friends but not at the level of support she desires; pt knows a facility manager histology in her christianity and she is encouraged to reach out to him for assessment counselor and support; pt is grateful for someone to talk to about these things; pt acknowledges need for prayer and support; such is given at this time
--- NOTE | 2021-11-21 15:39 | NURSING ---
This RN notified lab that pt's unit of blood was finished at 1520 and would need the H & H drawn 1 hour post transfusion.
[2021-11-21 16:34] LABS: Hematocrit 25.1 % (37-47); Hemoglobin 7.9 g/dL (12.0-15.0)
[2021-11-21 17:21] LABS: Bedside Glucose 203 mg/dL (74-106)
[2021-11-21 17:30] LABS: Urine Chloride 35 mmol/L (Not Establ.); Urine Sodium 36 mmol/L (Not Establ.)
[2021-11-21] MEDS: Atorvastatin Calcium 20 MG Tablet PO (21:11)
[2021-11-21 22:40] LABS: Bedside Glucose 215 mg/dL (74-106)
[2021-11-21] MEDS: Acetaminophen 325 MG Tablet 650 MG PO (23:37)
[2021-11-22] VITALS (12 sets, daily range): BP systolic 112–124; BP diastolic 58–96; PULSE 73–82; RESP 16–20; TEMP 36–36.9; O2SAT 95–100
[2021-11-22 06:21] LABS: Absolute Lymphocyte Count 1.68 X10^3/uL (0.83-4.51); Absolute Neutrophil Count 2.5 X10^3/uL (2.0-7.7); Basophil# 0.03 X10^3/uL; Basophil% 0.6 % (0-1); Eosinophil# 0.16 X10^3/uL; Eosinophils% 3.2 % (0-5); Hematocrit 23.5 % (37-47); Hemoglobin 7.7 g/dL (12.0-15.0); Lymphocyte # 1.68 X10^3/ul (0.83-4.51); Lymphocyte % 33.7 % (19-41); Mean Corp Hgb Conc 32.8 g/dL (32-36); Mean Corpuscular Hgb 29.5 pg (27.0-32.0); Mean Platelet Vol. 9.1 fl (6.2-12.0); NRBC Flagged by Analyzer 0 % (0-5); Neutrophil # 2.47 X10^3/uL (2.7-7.7); Neutrophil % 49.7 % (47-70); Platelet Count 263 K/mm3 (150-450); RBC Distribution Width CV 15.6 % (11.6-14.6); RBC Distribution Width SD 50.4 fl (35.1-43.9); Red Blood Count 2.61 M/mm3 (4.2-5.4)
[2021-11-22 06:41] LABS: Bedside Glucose 111 mg/dL (74-106)
[2021-11-22 06:49] LABS: ALB/GLOB Ratio 0.8 RATIO (0.9-2.4); AST(SGOT) 26 U/L (15-37); Alanine Aminotransfer ALT/SGPT 29 U/L (13-56); Albumin, Serum 2.8 g/dL (3.2-5.0); Alkaline Phosphatase 22 U/L (45-117); Anion Gap 5 (5-15); BUN 54 mg/dL (7-18); BUN/Creat Ratio 43.9 RATIO (10-20); Calcium,Total 9.2 mg/dL (8.5-10.1); Chloride 113 mmol/L (98-107); Creatinine, Serum 1.23 mg/dL (0.55-1.02); EST Glomerular Filtration Rate 46 mL/min (>60); Est Glom Filt Rate - Afr Amer 55 mL/min (>60); Estimated Creatinine Clearance 31.66 ml/min; Globulin 3.3 g/dL (2.2-4.2); Glucose 116 mg/dL (74-106); Potassium 4.2 mmol/L (3.5-5.1); Protein, Total 6.1 g/dL (6.4-8.2); Sodium Level 143 mmol/L (136-145)
[2021-11-22] MEDS: oxyCODONE 5 MG Tablet 10 MG PO (08:50)
[2021-11-22] MEDS: Metoprolol Tartrate 25 MG Tablet 6.25 MG PO ×2 (08:51→21:41)
[2021-11-22] MEDS: Senna/Docusate Sodium 1 Tablet 2 TABLET PO (08:54)
[2021-11-22] MEDS: Insulin Lispro 100 UNIT/ML INSULN.PEN SC ×3 (11:11→21:43)
[2021-11-22 11:45] LABS: Bedside Glucose 202 mg/dL (74-106)
--- NOTE | 2021-11-22 12:21 | PCM.PN.HOSP ---
Subjective Subjective DOS: 11/22/21 CC: R gluteal pain Ms. Noble is a 71y/o female who presented 11/21 03/23 R hip pain and was found to have a R gluteal hematoma. She reports worsened pain today which she attributes to increasing her use of her leg and attempting leg exercises/working with PT. She required pain medication d/t her pain level but was somewhat more comfortable during our interaction due to that. She denies CP or SOB. No n/v, eating well. Denies headache or changes in vision. Objective Data Objective Data Vital Signs: Vital Signs Temp Pulse Resp BP Pulse Ox O2 Del Method 98.2 F 78 16 122/58 H 95 Room Air 11/22/21 08:35 11/22/21 08:51 11/22/21 08:35 11/22/21 08:51 11/22/21 08:35 11/22/21 08:56 Oxygen Delivery Method Room Air Weight: 59.4 kg Body Mass Index (BMI) 24.5 Intake & Output: Intake and Output for Last 24 Hours 11/20/21 11/21/21 11/22/21 23:59 23:59 23:59 Intake Total 1670 / 1670 120 / 120 Output Total 1300 / 1300 350 / 350 Balance 370 / 370 -230 / -230 Lab / Micro Data Result Diagrams: 11/22/21 05:40 11/22/21 05:40 Labs: Laboratory Results - last 24 hr 11/21/21 00:20: Hgb 6.0 L* 11/21/21 00:30: Crossmatch See Detail 11/21/21 16:23: Hgb 7.9 L, Hct 25.1 L 11/21/21 16:54: POC Glucose 203 H 11/21/21 17:00: Ur Random Sodium 36, Urine Creatinine 52.70, Urine Potassium 29.0, Urine Chloride 35 11/21/21 21:07: POC Glucose 215 H 11/22/21 05:40: WBC 5.0, RBC 2.61 L, Hgb 7.7 L, Hct 23.5 L, MCV 90.0, MCH 29.5, MCHC 32.8 D, RDW Std Deviation 50.4 H, RDW Coeff of Kateryna 15.6 H, Plt Count 263, MPV 9.1, Immature Gran % (Auto) 0.800, Neut % (Auto) 49.7, Lymph % (Auto) 33.7, [place] % (Auto) 12.0 H, Eos % (Auto) 3.2, Baso % (Auto) 0.6, Absolute Neuts (auto) 2.5, Absolute Lymphs (auto) 1.68, Nucleated RBC % 0 11/22/21 05:40: Sodium 143, Potassium 4.2, Chloride 113 H, Carbon Dioxide 25.0, Anion Gap 5, BUN 54 H, Creatinine 1.23 H, Estim Creat Clear Calc 31.66, Est GFR (MDRD) Af Amer 55 L, Est GFR (MDRD) Non-Af 46 L, BUN/Creatinine Ratio 43.9 H, Glucose 116 H, Calcium 9.2, Total Bilirubin 0.50, AST 26, ALT 29, Alkaline Phosphatase 22 L, Total Protein 6.1 L, Albumin 2.8 L, Globulin 3.3, Albumin/Globulin Ratio 0.8 L 11/22/21 06:20: POC Glucose 111 H 11/22/21 11:10: POC Glucose 202 H Physical Exam Const alert, oriented x3 and no apparent distress General Appearance: cooperative HEENT normocephalic, head/scalp atraumatic and moist oral mucous membranes Eyes conjunctivae normal and no scleral icterus Eyes Narrative: EOM grossly intact bilaterally Neck supple Neck Narrative: No overt abnormalities noted General: trachea midline Resp normal respiratory effort, normal air movement and clear to auscultation bilaterally Effort and Inspection: able to speak in complete sentences and symmetric chest movement Cardio regular rate, regular rhythm, S1 normal heart sound, S2 normal heart sound and peripheral pulses 2+ throughout GI normal to inspection, nondistended, normoactive bowel sounds, soft to palpation and non-tender Extremity normal capillary refill and no clubbing, cyanosis or edema Extremity Narrative: 5/5 strength in LLE, RLE 4/5 2/2 pain. No numbness or tingling, no swelling of extremities from knee down appreciated, pt with difficulty sitting up due to the leg pain but able to move around in bed Skin Skin Narrative: No overt bruising noted superficially over R gluteal region at this time, somewhat less ttp today Lesions: no lesions Rashes: no rashes Neuro oriented x3, no focal motor deficits and no sensory deficits noted Sensorium / Orientation: awake, alert and oriented to person Speech: speech normal Psych thought process normal, cooperative and affect normal Appearance: appropriate Assessment & Plan Assessment/Plan (1) Contusion of right hip region: (2) Hematoma: (3) Fall: (4) Anemia: (5) Acute pain of right hip: PLAN: Plan 1. Acute pain of the right hip secondary to gluteal hematoma and avulsion fracture of the right trochanter -Admit to PCU -Consult vascular, case discussed with Dr. Hayes by ER physician -Vascular evaluated and recommended holding eliquis for 10-14 days and intervention unlikely -Pain management regimen ordered, required another dose of pain medication -PT and OT to eval and treat, pt required assist and PT at least 4 days a week was recommended Will assess safest d/c option Pain increased but likely d/t increase in acitivty which pt also agrees with, swelling overall improving 2. Acute blood loss anemia secondary to gluteal hematoma -Patient on Eliquis for paroxysmal atrial fibrillation, this has been held, hold for 10-14 days Intra gluteal hematoma, noted in on CT on presentation, measuring aprox 11.5x8.6x6.1 Vascular consulted -Hgb 6.9 on admission, trended to 6.0 and was 6.8 after 1uprbc and second prbc given yesterday with resultant hgb 7.7 3. Paroxysmal atrial fibrillation -Eliquis on hold secondary to hematoma BB held d/t relative hypotension on admission, metoprolol started to allow for HR control, if BP improving will be able to transition back to [facility] [place], [place] Start amio when able Ms. Noble follows with Dr. Joseph Pradhan at [facility] in [place] and will f/u with him after d/c 4. Hypertension/CAD/hyperlipidemia -Antihtn held 2/2 low BP on admission, will restart as BP allows -Continue atorvastatin and fenofibrate -Cardiac diet ordered 5. DEEPTI vs CKD Cr 1.56 down to 1.45 to 1.22, improving Unclear baseline Fena indicates prerenal etiology (0.71) likely d/t her hypovolemia from blood loss 2/2 gluteal hematoma Continue to monitor 6. DMII On glimepiride and metformin at home Given reduced kidney fxn with unclear baseline will hold at this time and proceed with SSI 7. Falls Pt endorses she slipped on [employer] for [place] [employer] but has had several falls this past year (only one does she report was not mechanical) Ambulates with cane at baseline Pt requires increased assist and recommends minimum of 4 days of PT a week Pt still has significant pain and ambulatory difficulties, will work on improving pain control and mobility and assess safe d/c plan Possible d/c tomorrow pending improvement in these as well as hgb continuing to be stable DVT prophylaxis-SCDs Lexy Patino MD 32 minutes spent in clinical coordination of patient's plan of care. Charges/Coding Visit Charges Inpatient E&M: 16158 Subs Hosp L1
--- NOTE | 2021-11-22 14:13 | CASEMGMT ---
SW met with patient. Introduced self and role at [facility]. SW asked patient if she feels she will be okay returning home at discharge. Patient said not today. Patient said the doctor told her tomorrow or . SW asked patient if she would like a list of shelter facilities around the area where she lives. Patient said she thinks she will be fine. Marry OCHOA
--- NOTE | 2021-11-22 14:28 | PN.SURG_ITS ---
Subjective Subjective Buttock more sore today; was walking and stretching a lot yesterday. No further transfusions Objective Data Objective Data Vital Signs: Vital Signs Temp Pulse Resp BP Pulse Ox O2 Del Method 98.2 F 78 16 122/58 H 95 Room Air 11/22/21 08:35 11/22/21 08:51 11/22/21 08:35 11/22/21 08:51 11/22/21 08:35 11/22/21 08:56 Oxygen Delivery Method Room Air Weight: 130 lb 15.273 oz Body Mass Index (BMI) 24.5 Intake & Output: Intake and Output for Last 24 Hours 11/20/21 11/21/21 11/22/21 23:59 23:59 23:59 Intake Total 1670 / 1670 120 / 120 Output Total 1300 / 1300 350 / 350 Balance 370 / 370 -230 / -230 Lab / Micro Data Result Diagrams: 11/22/21 05:40 11/22/21 05:40 Labs: Laboratory Results - last 24 hr 11/21/21 00:30: Crossmatch See Detail 11/21/21 16:23: Hgb 7.9 L, Hct 25.1 L 11/21/21 16:54: POC Glucose 203 H 11/21/21 17:00: Ur Random Sodium 36, Urine Creatinine 52.70, Urine Potassium 29.0, Urine Chloride 35 11/21/21 21:07: POC Glucose 215 H 11/22/21 05:40: WBC 5.0, RBC 2.61 L, Hgb 7.7 L, Hct 23.5 L, MCV 90.0, MCH 29.5, MCHC 32.8 D, RDW Std Deviation 50.4 H, RDW Coeff of Kateryna 15.6 H, Plt Count 263, MPV 9.1, Immature Gran % (Auto) 0.800, Neut % (Auto) 49.7, Lymph % (Auto) 33.7, [place] % (Auto) 12.0 H, Eos % (Auto) 3.2, Baso % (Auto) 0.6, Absolute Neuts (auto) 2.5, Absolute Lymphs (auto) 1.68, Nucleated RBC % 0 11/22/21 05:40: Sodium 143, Potassium 4.2, Chloride 113 H, Carbon Dioxide 25.0, Anion Gap 5, BUN 54 H, Creatinine 1.23 H, Estim Creat Clear Calc 31.66, Est GFR (MDRD) Af Amer 55 L, Est GFR (MDRD) Non-Af 46 L, BUN/Creatinine Ratio 43.9 H, Glucose 116 H, Calcium 9.2, Total Bilirubin 0.50, AST 26, ALT 29, Alkaline Phosphatase 22 L, Total Protein 6.1 L, Albumin 2.8 L, Globulin 3.3, Albumin/Globulin Ratio 0.8 L 11/22/21 06:20: POC Glucose 111 H 11/22/21 11:10: POC Glucose 202 H Physical Exam Const alert, oriented x3, no apparent distress and healthy appearing General Appearance: cooperative; Negative for combative or lethargic Orientation / Consciousness: awake Exam Limitations: no limitations HEENT Head and Scalp: normocephalic and atraumatic Eyes EOMs intact bilaterally General Eye: normal appearance of both eyes Resp normal respiratory effort and no use of accessory muscles Effort and Inspection: Negative for labored, stridor or audible wheezes Cardio regular rate and regular rhythm Back/Spine Cervical Spine: cervical ROM normal Neuro oriented x3, CN's II-XII intact bilaterally, no focal motor deficits and no sensory deficits noted Psych thought process normal, cooperative, affect normal, speech normal and activity/motor behavior normal Assessment & Plan Assessment/Plan (1) Hematoma: PLAN: -hgb stable -variability in discomfort expected as hematoma resloves
[2021-11-22] MEDS: Acetaminophen 325 MG Tablet 650 MG PO (16:36)
[2021-11-22 17:12] LABS: Bedside Glucose 159 mg/dL (74-106)
[2021-11-22] MEDS: Atorvastatin Calcium 20 MG Tablet PO (21:41)
[2021-11-22 22:05] LABS: Bedside Glucose 211 mg/dL (74-106)
[2021-11-23] VITALS (7 sets, daily range): BP systolic 118–123; BP diastolic 51–62; PULSE 66–81; RESP 18–20; TEMP 36.2–36.7; O2SAT 95–100
[2021-11-23 06:09] LABS: Absolute Lymphocyte Count 1.38 X10^3/uL (0.83-4.51); Absolute Neutrophil Count 2.2 X10^3/uL (2.0-7.7); Basophil# 0.06 X10^3/uL; Basophil% 1.4 % (0-1); Eosinophil# 0.18 X10^3/uL; Eosinophils% 4.1 % (0-5); Hemoglobin 7.9 g/dL (12.0-15.0); Lymphocyte # 1.38 X10^3/ul (0.83-4.51); Lymphocyte % 31.7 % (19-41); Mean Corp Hgb Conc 31.6 g/dL (32-36); Mean Corpuscular Hgb 29.2 pg (27.0-32.0); Mean Corpuscular Volume 92.3 fL (81-99); Mean Platelet Vol. 8.9 fl (6.2-12.0); Monocyte# 0.48 X10^3/uL; NRBC Flagged by Analyzer 0 % (0-5); Neutrophil # 2.23 X10^3/uL (2.7-7.7); Neutrophil % 51.1 % (47-70); Platelet Count 282 K/mm3 (150-450); RBC Distribution Width CV 15.6 % (11.6-14.6); RBC Distribution Width SD 51.9 fl (35.1-43.9); Red Blood Count 2.71 M/mm3 (4.2-5.4); White Blood Count 4.4 K/mm3 (4.4-11.0)
[2021-11-23 06:41] LABS: Bedside Glucose 127 mg/dL (74-106)
[2021-11-23 06:47] LABS: ALB/GLOB Ratio 0.8 RATIO (0.9-2.4); AST(SGOT) 34 U/L (15-37); Alanine Aminotransfer ALT/SGPT 34 U/L (13-56); Albumin, Serum 2.9 g/dL (3.2-5.0); Alkaline Phosphatase 23 U/L (45-117); Anion Gap 7 (5-15); BUN 41 mg/dL (7-18); BUN/Creat Ratio 47.2 RATIO (10-20); Calcium,Total 9.1 mg/dL (8.5-10.1); Chloride 115 mmol/L (98-107); Creatinine, Serum 0.87 mg/dL (0.55-1.02); EST Glomerular Filtration Rate 68 mL/min (>60); Est Glom Filt Rate - Afr Amer 83 mL/min (>60); Estimated Creatinine Clearance 44.76 ml/min; Globulin 3.6 g/dL (2.2-4.2); Glucose 128 mg/dL (74-106); Potassium 4.2 mmol/L (3.5-5.1); Protein, Total 6.5 g/dL (6.4-8.2); Sodium Level 145 mmol/L (136-145)
[2021-11-23] MEDS: Metoprolol Tartrate 25 MG Tablet 6.25 MG PO (08:37)
[2021-11-23] MEDS: Polyethylene Glycol 3350 17 GM PACKET 34 GM PO (08:38)
[2021-11-23] MEDS: Insulin Lispro 100 UNIT/ML INSULN.PEN SC (11:26)
[2021-11-23 12:15] LABS: Bedside Glucose 204 mg/dL (74-106)
--- NOTE | 2021-11-23 13:55 | DS.PCM_ITS ---
Providers Date of Admission: 11/21/21 Date of Discharge: 11/23/21 Consultations 11/21/21 00:32 Consult: Vascular Surgery Routine Consulting Provider: Quinten Hayes Reason for Consult: Right gluteal hematoma EMERGENT Consult: No MD Notified: Yes Date Notified: 11/21/21 Time Notified: 00:22 Method of Notification: ED Physician Initiated Reason For Visit: HEMATOMA, ACUTE ANEMIA Diagnosis Discharge Diagnosis (1) Hematoma: Status: Acute Code(s): T14.8XXA - Other injury of unspecified body region, initial encounter Plan 1. Acute pain of the right hip secondary to gluteal hematoma and avulsion fracture of the right trochanter Improving Vascular rec hold eliquis 10-14 days warm compresses and tylenol for pain control as pt has had minimal requirements Activity as tolerated Will go home with neice 2. Acute blood loss anemia secondary to gluteal hematoma -Patient on Eliquis for paroxysmal atrial fibrillation, this has been held, hold for 10-14 days Intra gluteal hematoma, noted in on CT on presentation, measuring aprox 11.5x8.6x6.1 Hgb stabilized 3. Paroxysmal atrial fibrillation -Eliquis on hold secondary to hematoma- restart 12/02/21 Coreg restarted at lower dose, amiodarone resumed Ms. Noble follows with Dr. Joseph Pradhan at [facility] in [place] and will f/u with him after d/c 4. Hypertension/CAD/hyperlipidemia -Antihtn held 2/2 low BP on admission, given starting several medications back will hold on irbesartan until pt follows with her physician -Continue atorvastatin and fenofibrate -Cardiac diet ordered 5. DEEPTI vs CKD Cr 1.56 down to 1.45 to 1.22 to 0.87, appears it was DEEPTI likely d/t hypoperfusion Fena indicates prerenal etiology (0.71) likely d/t her hypovolemia from blood loss 2/2 gluteal hematoma Avoid nephrotoxic agents 6. DMII Resume metformin daily glucose checks 7. HFrEF, chronic, compensated Resume carvedilol Holding irbesartan d/t resuming carvedilol and lasix as well as amiodarone Given instructions on weighing and diuretics will f/u with her statistical engineer in [place] Discussed instructions extensively until no further questions Lexy Patino MD 50 minutes spent in clinical coordination of patient's plan of care. Medications at Discharge Home Medications apixaban 5 mg tablet (Eliquis) 5 mg PO DAILY 11/19/21 irbesartan 300 mg tablet 300 mg PO DAILY 11/19/21 amiodarone 200 mg tablet 200 mg PO DAILY 30 days #30 tabs 11/23/21 atorvastatin 20 mg tablet 20 mg PO QHS 30 days #30 tabs 11/23/21 carvedilol 3.125 mg tablet 3.125 mg PO BID 30 days #60 tabs 11/23/21 fenofibrate 160 mg tablet 160 mg PO DAILY 30 days #30 tabs 11/23/21 furosemide 40 mg tablet 20 mg PO QODAY 30 days #8 tabs 11/23/21 metformin 500 mg tablet,extended release 24 hr 1,000 mg PO DINNER 30 days #60 ta bs 11/23/21 Hospital Course Summary of Care Provided Hospital Course: Hina Noble is a 71y/o female with hx of hfref, pafib in NSR, DMII on metformin, and HTN who presented to [facility] ED 11/21/21 due to complaints of right hip pain. She had fallen the day before and was seen in the ED and found to have an avulsion fracture of her right trochanter. She was ambulating and was sent home. She had increasing pain and swelling, however, and returned to the ED and was found to have a hgb of 6.9 and a intragluteal hematoma on the right measuring aprox 11.5x8.6x6.1. Vascular consulted and recommended holding eliquis for 10-14 days with no intervention. Pt received 2uprbc. She improved and stabilized. Worked with PT and made progress. She additionally had her blood pressure medications adjusted d/t somewhat intermittently low BP and on discharge medications were adjusted with close follow up recommended. Pt discharged with niece in stable condition. Lexy Patino MD Time spent coordinating discharge, 50 minutes Physical Exam Const alert and oriented x3 General Appearance: cooperative HEENT normocephalic Eyes PERRL and EOMs intact bilaterally Neck supple Resp normal respiratory effort and no use of accessory muscles Cardio regular rate and regular rhythm GI soft to palpation, non-tender and non-distended Extremity Extremity Narrative: No peripheral edema noted Skin Skin Narrative: Minor bruising over R hip bone Neuro moves all extremities Neuro Narrative: Slight limitation of R leg d/t pain, ambulates with walker Psych affect normal Weight / BMI Weight Weight: 60 kg Body Mass Index (BMI) 24.5 ABG / Lab / Microbiology Data Result Diagrams: 11/23/21 05:44 11/23/21 05:44 Laboratory: Laboratory Results - last 24 hr 11/22/21 16:33: POC Glucose 159 H 11/22/21 21:40: POC Glucose 211 H 11/23/21 05:44: WBC 4.4, RBC 2.71 L, Hgb 7.9 L, Hct 25.0 L, MCV 92.3, MCH 29.2, MCHC 31.6 L, RDW Std Deviation 51.9 H, RDW Coeff of Kateryna 15.6 H, Plt Count 282, MPV 8.9, Immature Gran % (Auto) 0.700, Neut % (Auto) 51.1, Lymph % (Auto) 31.7, Rankin % (Auto) 11.0 H, Eos % (Auto) 4.1, Baso % (Auto) 1.4 H, Absolute Neuts (auto) 2.2, Absolute Lymphs (auto) 1.38, Nucleated RBC % 0 11/23/21 05:44: Sodium 145, Potassium 4.2, Chloride 115 H, Carbon Dioxide 23.0, Anion Gap 7, BUN 41 H, Creatinine 0.87, Estim Creat Clear Calc 44.76, Est GFR (MDRD) Af Amer 83, Est GFR (MDRD) Non-Af 68, BUN/Creatinine Ratio 47.2 H, Glucose 128 H, Calcium 9.1, Total Bilirubin 0.50, AST 34, ALT 34, Alkaline Phosphatase 23 L, Total Protein 6.5, Albumin 2.9 L, Globulin 3.6, Albumin/Globulin Ratio 0.8 L 11/23/21 06:16: POC Glucose 127 H 11/23/21 11:22: POC Glucose 204 H D/C Instructions Discharge Diet: No restrictions Discharge Activity: Return to Normal Activity (as tolerated) Meaningful Use Info Meaningful Use Diagnoses (Choose all that apply): CHF CHF LOAN/ARB ordered at discharge?: No Reason LOAN/ARB not ordered?: Hypotension Documented LVEF (%): 30 Discharge Plan Admission Admit Date/Time: 11/21/21 11:22 Primary Reason for Your Visit: Right hip pain Attending Provider: Lexy Patino Primary Care Provider: Care Physician,No Primary Consulting Providers: Quinten Hayes ; Kimo Dunbar ; Sanaz Albarran Instructions Patient Instructions: Furosemide Oral tablet, Heart Failure Dc, ED Mechanical Fall, ED Fall Prevention Additional Instructions / Restrictions: *Please take this with you to your next doctors appointment* * You were admitted for right hip pain and found to have a right sided gluteal hematoma which had resulted in swelling and pain * Please apply warm compresses to the affected area to help with pain control. You can take over the counter tylenol as directed for additional symptoms * Please hold your eliquis (blood thinner) until 12/02/21 * You have had several medication changes given your blood pressure measurements while admitted * Your carvedilol will be 3.125mg twice daily * Your water pill (lasix/furosemide) was held during admission due to your blood pressure. As your blood pressure has improved, please begin taking 20mg (1/2 a pill) every other day. You can use your home supply * Continue amiodarone * Your irbesartan has been held on discharge to avoid excessively lowering your blood pressure. Please discuss restarting this with your physician at your next appointment when your blood pressure is reassessed. * Weigh yourself every day. A sudden weight gain can mean your heart failure is getting worse. Weigh yourself at the same time of day and in the same kind of clothes. Ideally, weigh yourself first thing in the morning after you empty your bladder, but before you eat breakfast. * Please call your physician if your weight goes up by more than 2 pounds in 1 day or 5 pounds in 1 week. This can be a sign that you are retaining more fluid than you should be. Clues to weight gain include checking your ankles for swelling, or noticing you are short of breath when you lie down * Continue metformin and check your glucose daily. Your glimepiride was held to avoid low blood sugar. Please discuss this with your primary care physician at your follow up appointment * Please call your primary care physician office on discharge to [place] a follow up within 7 days. It is very important you make this appointment. * Please call upon discharge to schedule an appointment with your heart doctor, it will also be important to discuss the medication changes with him. * Please proceed to the emergency department or call 911 for any concerning signs or symptoms. Discharge Orders/Prescriptions Prescriptions: Continued atorvastatin 20 mg tablet 20 mg PO QHS 30 Days Qty: 30 0RF carvedilol 3.125 mg tablet 3.125 mg PO BID 30 Days Qty: 60 0RF metformin 500 mg tablet extended release 24 hr 1,000 mg PO DINNER 30 Days Qty: 60 0RF fenofibrate 160 mg tablet 160 mg PO DAILY 30 Days Qty: 30 0RF Changed furosemide 40 mg tablet 20 mg PO QODAY 30 Days Qty: 8 0RF amiodarone 200 mg tablet 200 mg PO DAILY 30 Days Qty: 30 0RF Held irbesartan 300 mg tablet 300 mg PO DAILY Hold Instructions: Resume on 12/07/21. Hold until discussed with your physician Eliquis 5 mg tablet 5 mg PO DAILY Hold Instructions: Resume on 12/02/21. Discontinued carvedilol 6.25 mg tablet 6.25 mg PO BID Rx Instructions: Take with 3.125mg tablet Referrals / Follow Up: Leandro Salmon [Other] - In 1 Week (Follow up within 1 week) Joseph Pradhan [Other] - In 1 Week (Please follow up with your Testing Manager upon discharge) Disposition Disposition (needs filled in before D/C Order can be placed): Home, Self Care Charges/Coding Visit Charges Inpatient E&M: 68767 Disch Hosp
--- NOTE | 2021-11-23 14:05 | CASEMGMT ---
Pt to be provided script for OP therapy, if she feels she needs once home, as [place]. Pt voices no further questions/concerns/needs. Allen BRUMFIELD CM
--- NOTE | 2021-11-23 14:09 | CHAPLAIN ---
Type of Pastoral Visit ___ Initial Visit _x__ Follow-up Visit ___ On-call Visit ___ General Patient Visit ___ Spiritual Assessment ___ Family Conference ___ Bereavement ___ Rapid Response ___ Code Blue ___ Other (describe below) Pastoral Care Referral From __x_ Patient ___ Family ___ Nurse ___ Physician ___ Electrical Electronics Technician ___ Physician Office Secretary ___ Other (describe below) Sacrament/Intervention _x__ Active listening ___ Anointing ___ Shinto ___ Bereavement ___ Communion ___ Shanelle exploration ___ ___ Life review ___ Prayer ___ Reconciliation ___ Sacrament of Sick ___ Supportive presence ___ Wedding ___ Other (describe below) Pastoral Comments follow up supportive visit to this patient; pt states that she will be discharged home and believes she can handle the care at her home; pt requests to be kept in your prayers;
--- NOTE | 2021-11-23 14:19 | DCINST_ITS ---
Discharge Instructions Diet Discharge Diet: Carb Control Diet Activity Discharge Activity: Return to Normal Activity (as tolerated) Dressing / Incision Call your doctor if you observe: Fever of 101 or Higher, Coldness, Increased Pain, Numbness or Tingling, Dizziness and Uncontrolled pain Follow Up Care Test Results: Test results from this visit will be discussed in further detail at your follow- up appointment, if applicable. Discharge Plan Admission Admit Date/Time: 11/21/21 11:22 Primary Reason for Your Visit: Right hip pain Attending Provider: Lexy Patino Primary Care Provider: Care Physician,No Primary Consulting Providers: Quinten Hayes ; Kimo Dunbar ; Sanaz Albarran Instructions Patient Instructions: Furosemide Oral tablet, Heart Failure Dc, ED Mechanical Fall, ED Fall Prevention Additional Instructions / Restrictions: *Please take this with you to your next doctors appointment* * You were admitted for right hip pain and found to have a right sided gluteal hematoma which had resulted in swelling and pain * Please apply warm compresses to the affected area to help with pain control. You can take over the counter tylenol as directed for additional symptoms * Please hold your eliquis (blood thinner) until 12/02/21 * You have had several medication changes given your blood pressure measurements while admitted * Your carvedilol will be 3.125mg twice daily * Your water pill (lasix/furosemide) was held during admission due to your blood pressure. As your blood pressure has improved, please begin taking 20mg (1/2 a pill) every other day. You can use your home supply * Continue amiodarone * Your irbesartan has been held on discharge to avoid excessively lowering your blood pressure. Please discuss restarting this with your physician at your next appointment when your blood pressure is reassessed. * Weigh yourself every day. A sudden weight gain can mean your heart failure is getting worse. Weigh yourself at the same time of day and in the same kind of clothes. Ideally, weigh yourself first thing in the morning after you empty your bladder, but before you eat breakfast. * Please call your physician if your weight goes up by more than 2 pounds in 1 day or 5 pounds in 1 week. This can be a sign that you are retaining more fluid than you should be. Clues to weight gain include checking your ankles for swelling, or noticing you are short of breath when you lie down * Continue metformin and check your glucose daily. Your glimepiride was held to avoid low blood sugar. Please discuss this with your primary care physician at your follow up appointment * Please call your primary care physician office on discharge to [facility] a follow up within 7 days. It is very important you make this appointment. * Please call upon discharge to schedule an appointment with your heart doctor, it will also be important to discuss the medication changes with him. * Please proceed to the emergency department or call 911 for any concerning signs or symptoms. Discharge Orders/Prescriptions Prescriptions: Continued atorvastatin 20 mg tablet 20 mg PO QHS 30 Days Qty: 30 0RF carvedilol 3.125 mg tablet 3.125 mg PO BID 30 Days Qty: 60 0RF metformin 500 mg tablet extended release 24 hr 1,000 mg PO DINNER 30 Days Qty: 60 0RF fenofibrate 160 mg tablet 160 mg PO DAILY 30 Days Qty: 30 0RF Changed furosemide 40 mg tablet 20 mg PO QODAY 30 Days Qty: 8 0RF amiodarone 200 mg tablet 200 mg PO DAILY 30 Days Qty: 30 0RF Held irbesartan 300 mg tablet 300 mg PO DAILY Hold Instructions: Resume on 12/07/21. Hold until discussed with your physician Eliquis 5 mg tablet 5 mg PO DAILY Hold Instructions: Resume on 12/02/21. Discontinued carvedilol 6.25 mg tablet 6.25 mg PO BID Rx Instructions: Take with 3.125mg tablet Referrals / Follow Up: Leandro Salmon [Other] - In 1 Week (Follow up within 1 week) Joseph Pradhan [Other] - In 1 Week (Please follow up with your Thimble Press Operator upon discharge) Disposition Disposition (needs filled in before D/C Order can be placed): Home, Self Care
== END 2021-11-23 16:20 | disposition home or self-care (01) | DRG 604 ==
LOC: ED 23:53 → PCU 11-21 00:19
PROVIDERS: Internal Medicine; Nurse Practitioner Family; Admitting Provider Hospitalist; Emergency Provider Emergency Medicine; Visit Provider Internal Medicine
DX: S30.0XXA Contusion of lower back and pelvis, initial encounter (principal); S72.111A Displaced fracture of greater trochanter of right femur, initial encounter for closed fracture; N17.9 Acute kidney failure, unspecified; I13.0 Hypertensive heart and chronic kidney disease with heart failure and stage 1 through stage 4 chronic kidney disease, or unspecified chronic kidney disease; D62 Acute posthemorrhagic anemia; I50.22 Chronic systolic (congestive) heart failure; E86.1 Hypovolemia; E11.22 Type 2 diabetes mellitus with diabetic chronic kidney disease; E11.65 Type 2 diabetes mellitus with hyperglycemia; I48.0 Paroxysmal atrial fibrillation; W01.0XXA Fall on same level from slipping, tripping and stumbling without subsequent striking against object, initial encounter; E78.00 Pure hypercholesterolemia, unspecified; N18.2 Chronic kidney disease, stage 2 (mild); I25.10 Atherosclerotic heart disease of native coronary artery without angina pectoris; I25.5 Ischemic cardiomyopathy; R29.6 Repeated falls; R03.1 Nonspecific low blood-pressure reading; Z95.5 Presence of coronary angioplasty implant and graft; Z79.01 Long term (current) use of anticoagulants; Z79.84 Long term (current) use of oral hypoglycemic drugs; Z79.899 Other long term (current) drug therapy; Z28.310 Unvaccinated for COVID-19; Z28.21 Immunization not carried out because of patient refusal
CPT/HCPCS: 36415; 72192; 73502; 80048; 80053; 82436; 82570; 82962; 84133; 84300; 85014; 85018; 85025; 85610; 85730; 86850; 86900; 86901; 86920; 86922; 93005; 96372; 97162; 97166; 97530; 97535; 99282; 99285; J7040; P9016; A4216; J2405

== ENCOUNTER 2023-06-01 16:27 | Emergency (ER) | payer MEDICARE, BC, SELFPAY ==
[2023-06-01 16:28] VITALS: BP 150/68; PULSE 87; RESP 18; TEMP 35.6
[2023-06-01 16:29] VITALS: BP 150/68; PULSE 87; RESP 18; TEMP 35.6; BMI 23.8
--- NOTE | 2023-06-01 16:41 | CT_ITS ---
EXAM: CT ABDOMEN AND PELVIS WITHOUT INTRAVENOUS CONTRAST CLINICAL INDICATION: left flank pain TECHNIQUE: Helically acquired images were obtained of the abdomen and pelvis without intravenous contrast. This CT exam was performed using one or more of the following dose reduction techniques: automated exposure control, adjustment of the mA and/or kV according to patient size, and/or use of iterative reconstruction technique. COMPARISON: No relevant prior studies available. FINDINGS: LOWER THORAX: There are moderate coronary artery calcifications. Lung bases are clear. No cardiomegaly. No significant pericardial effusion. ABDOMEN: LIVER: Unremarkable. Homogeneous. GALLBLADDER AND BILE DUCTS: There are surgical clips from a cholecystectomy. No intra- or extrahepatic biliary ductal dilation. PANCREAS: Unremarkable. No focal cystic mass. SPLEEN: Unremarkable. Normal size without focal cystic or solid mass. ADRENALS: Unremarkable. No nodules. KIDNEYS AND URETERS: Is a low-density mass in the left kidney compatible with a simple cyst. No follow-up imaging is necessary. There is no hydronephrosis. There are peripelvic cysts in the left kidney. STOMACH AND BOWEL: Unremarkable. No stomach or bowel distention. No focal inflammatory change. PELVIS: APPENDIX: No evidence of acute appendicitis. BLADDER: Unremarkable. REPRODUCTIVE: Unremarkable as visualized. No mass. ABDOMEN and PELVIS: INTRAPERITONEAL SPACE: Unremarkable. No ascites or other fluid collection. No free air. BONES/JOINTS: Orthopedic cement in the T12 vertebral body. No suspicious lytic or blastic abnormality. SOFT TISSUES: There is mesh across a ventral hernia repair. VASCULATURE: See above. LYMPH NODES: Unremarkable. No enlarged lymph nodes. CT/Abdomen/Pelvis without Cont IMPRESSION: No acute abnormalities in the abdomen or pelvis. Electronically Signed: Abran England MD at 17:56 EDT ,
--- NOTE | 2023-06-01 16:41 | EX.ED.DYSGE1 ---
HPI History of Present Illness Chief Complaint: Flank Pain Informant: patient Onset/Context/Timing Onset: Days (5 days) Context: Gradual Onset Timing: Waxes and wanes Narrative Narrative: Patient presents with 5 days of left flank pain. She states pain is primarily in the left CVA region. She is able to find positions where she can sit and has no pain at all. She does have a history of kidney stones but states this is not quite feel the same. She denies urinary symptoms or hematuria. She denies any fall or recent injury. [facility] Medical History Afib Congestive heart failure Diabetes Fall Hypercholesteremia Hypertension Kidney stones Home Medications apixaban 5 mg tablet (Eliquis) 5 mg PO DAILY 11/19/21 [History Last Taken Unknown] irbesartan 300 mg tablet 300 mg PO DAILY 11/19/21 [History Last Taken Unknown] amiodarone 200 mg tablet 200 mg PO DAILY 30 days #30 tabs 11/23/21 [Rx Last Taken Unknown] atorvastatin 20 mg tablet 20 mg PO QHS 30 days #30 tabs 11/23/21 [Rx Last Taken Unknown] carvedilol 3.125 mg tablet 3.125 mg PO BID 30 days #60 tabs 11/23/21 [Rx Last Taken Unknown] fenofibrate 160 mg tablet 160 mg PO DAILY 30 days #30 tabs 11/23/21 [Rx Last Taken Unknown] furosemide 40 mg tablet 20 mg (1/2 x 40 mg) PO QODAY 30 days #8 tabs 11/23/21 [Rx Last Taken Unknown] metformin 500 mg tablet,extended release 24 hr 1,000 mg (2 x 500 mg) PO DINNER 30 days #60 tabs 11/23/21 [Rx Last Taken Unknown] hydrocodone-acetaminophen 5-325mg 5mg-325mg 1 tab PO Q6H PRN PRN Pain 3 days #10 TABLETS 06/01/23 [Rx Last Taken Unknown] lidocaine 5 % topical patch (Lidoderm) 1 patch topical DAILY #6 ea 06/01/23 [Rx Last Taken Unknown] Allergy/AdvReac Type Severity Reaction Status Date / Time No Known Allergies Allergy Verified 06/01/23 16:28 Family History Other COPD (chronic obstructive pulmonary disease) Heart disease Surgical History History of herniorrhaphy Hx of cholecystectomy Hx of heart artery stent Hx of kyphoplasty Social History Smoking Status: Never smoker ROS ROS ED Constitutional Constitutional ED: Denies chills or fever(s) Eyes Eyes: Denies discharge from eye(s) ENT ENT ED: Denies discharge from eye(s), rhinorrhea or sore throat Cardiovascular Cardiovascular: Denies chest pain or palpitations Respiratory/Chest Respiratory/Chest: Denies cough or dyspnea Gastrointestinal Gastrointestinal: Denies abdominal pain, nausea or vomiting Genitourinary Genitourinary ED: Denies difficulty urinating, dysuria or hematuria Musculoskeletal Musculoskeletal: Reports back pain; Denies extremity pain Integumentary Denies Abrasions or rash Neurologic Neurologic: Denies headache(s) or weakness Psychiatric Psychiatric: Denies anxiety or depression Allergic/Immunologic Allergic/Immunologic ED: Denies lip swelling or urticaria EXAM Physical Exam Const Vital Signs: 06/01/23 16:29 06/01/23 16:28 06/01/23 16:57 Temperature 96.1 F L 96.1 F L 98.3 F Temperature Source Temporal Temporal Oral Pulse Rate 87 87 86 Respiratory Rate 18 18 18 Blood Pressure 150/68 H 150/68 H 150/76 H Blood Pressure Mean 95 95 100 Pulse Ox 92 Oxygen Delivery Method Room Air 06/01/23 18:00 Temperature 98.6 F Temperature Source Temporal Pulse Rate 64 Respiratory Rate 18 Blood Pressure 143/78 H Blood Pressure Mean 99 Pulse Ox 98 Oxygen Delivery Method Room Air Positive well nourished and well developed General Appearance ED: well developed HEENT Reports normocephalic and head/scalp atraumatic Eyes PERRL and EOMs intact bilaterally Neck supple Chest Wall inspection of chest normal and palpation of chest normal Resp normal respiratory effort and clear to auscultation bilaterally Cardio regular rate and regular rhythm GI normal to inspection, nondistended, normoactive bowel sounds Palpation: soft Back/Spine Back/Spine Narrative: Left CVA tenderness. Extremity normal to inspection Neuro oriented x3 and no sensory deficits noted Sensorium / Orientation: alert Motor Exam: strength 5/5 throughout Psych mental status grossly normal Skin no rashes or lesions noted MDM MDM MDM Narrative Medical decision making narrative: Patient declines anything for pain at this time. IV line initiated. Labwork obtained to evaluate for leukocytosis, anemia, and electrolyte derangement. Urinalysis obtained to evaluate for infection/hematuria. CT flank obtained to evaluate for potential kidney stone given her history of similar. History & Record Review Discussion w/independent historian: Patient and Family Additional record(s) reviewed:: Prior labs Lab Data Attestation: I reviewed the patient's lab results. Labs: Laboratory Results - last 24 hr 06/01/23 17:00 WBC 5.6 RBC 3.93 L Hgb 11.2 L Hct 36.2 L MCV 92.1 MCH 28.5 MCHC 30.9 L RDW Std Deviation 54.6 H RDW Coeff of Kateryna 15.9 H Plt Count 360 MPV 9.4 Immature Gran % (Auto) 0.700 Neut % (Auto) 70.1 H Lymph % (Auto) 15.6 L [place] % (Auto) 9.5 Eos % (Auto) 3.0 Baso % (Auto) 1.1 H Absolute Neuts (auto) 3.9 Absolute Lymphs (auto) 0.87 Nucleated RBC % 0 Sodium 139 Potassium 4.3 Chloride 108 H Carbon Dioxide 23.0 Anion Gap 8 BUN 44 H Creatinine 1.46 H Estim Creat Clear Calc 26.28 Est GFR (MDRD) Af Amer 45 L Est GFR (MDRD) Non-Af 37 L BUN/Creatinine Ratio 30.1 H Glucose 247 H Calcium 9.6 Urine Color Yellow Urine Clarity Clear Urine pH 5.0 Ur Specific [place] 1.015 Urine Protein 15 H Urine Glucose (UA) Normal Urine Ketones Negative Urine Occult Blood 25 H Urine Nitrite Negative Urine Bilirubin Negative Urine Urobilinogen Normal Ur Leukocyte Esterase Negative Urine RBC 0-5 SEEN Urine WBC 0 SEEN Ur Squamous Epith Cells 0-5 SEEN Urine Bacteria RARE Urine Mucus 0 SEEN Radiography Diagnostic Testing: Clinical Impression(s) from Imaging Studies Abdomen/Pelvis CT 06/01/23 16:41 IMPRESSION: No acute abnormalities in the abdomen or pelvis. Electronically Signed: Abran England MD at 17:56 EDT , Treatment and Re-Evaluation :: CBC was normal white count 5.6 with a hemoglobin 11.2. 70% neutrophils noted. Chemistry studies reveal a BUN of 44 and creatinine 1.46. This is near her baseline when compared to prior labs. Urinalysis reveals rare bacteria with 0-5 epithelial cells and no white cells. Nitrites are negative. CT scan of the flank reveals no acute abnormalities. On repeat evaluation patient does report increased back pain. She states lying on the CT table flared her pain. She be given a dose of [place] here with a prescription for a few tabs at home. Lidoderm patch will also be placed on her back. I discussed with her that I do believe her pain is musculoskeletal in nature. She will follow-up with her primary care physician next week. Return instructions given. Discharge Plan Triage Chief Complaint: Flank Pain ED Provider: Gabriella Norris Dx/Rx/DC Orders Clinical Impression: Left flank pain Instructions: ED Flank Pain, Uncertain Cause Prescriptions: New hydrocodone-acetaminophen 5-325 mg tablet 1 tab PO Q6H PRN PRN (Reason: Pain) 3 Days Qty: 10 0RF lidocaine [Lidoderm] 5 % adhesive patch,medicated 1 patch topical DAILY Qty: 6 0RF Rx Instructions: leave on most painful area for up to 12 hrs No Action irbesartan 300 mg tablet 300 mg PO DAILY Hold Instructions: Resume on 12/07/21. Hold until discussed with your physician Eliquis 5 mg tablet 5 mg PO DAILY Hold Instructions: Resume on 12/02/21. furosemide 40 mg tablet 20 mg PO QODAY 30 Days Qty: 8 0RF atorvastatin 20 mg tablet 20 mg PO QHS 30 Days Qty: 30 0RF amiodarone 200 mg tablet 200 mg PO DAILY 30 Days Qty: 30 0RF carvedilol 3.125 mg tablet 3.125 mg PO BID 30 Days Qty: 60 0RF metformin 500 mg tablet extended release 24 hr 1,000 mg PO DINNER 30 Days Qty: 60 0RF fenofibrate 160 mg tablet 160 mg PO DAILY 30 Days Qty: 30 0RF Primary Care Provider: Care Physician,No Primary Referrals: Care Physician,No Primary [Primary Care Provider] - Activity Restrictions/Additional Instructions: Follow-up with your primary care physician next week. Disposition Disposition: Home, Self Care
[2023-06-01 16:57] VITALS: BP 150/76; PULSE 86; RESP 18; TEMP 36.8; O2SAT 92
[2023-06-01 17:05] LABS: Mucous, Urine 0 SEEN /hpf (<or=2+); White Blood Cells 0 SEEN /hpf (0-5)
[2023-06-01 17:07] LABS: Absolute Lymphocyte Count 0.87 X10^3/uL (0.83-4.51); Absolute Neutrophil Count 3.9 X10^3/uL (2.0-7.7); Basophil# 0.06 X10^3/uL; Basophil% 1.1 % (0-1); Eosinophil# 0.17 X10^3/uL; Hematocrit 36.2 % (37-47); Hemoglobin 11.2 g/dL (12.0-15.0); Lymphocyte # 0.87 X10^3/ul (0.83-4.51); Lymphocyte % 15.6 % (19-41); Mean Corp Hgb Conc 30.9 g/dL (32-36); Mean Corpuscular Hgb 28.5 pg (27.0-32.0); Mean Corpuscular Volume 92.1 fL (81-99); Mean Platelet Vol. 9.4 fl (6.2-12.0); Monocyte# 0.53 X10^3/uL; Monocyte% 9.5 % (0-10); NRBC Flagged by Analyzer 0 % (0-5); Neutrophil # 3.91 X10^3/uL (2.7-7.7); Neutrophil % 70.1 % (47-70); Platelet Count 360 K/mm3 (150-450); RBC Distribution Width CV 15.9 % (11.6-14.6); RBC Distribution Width SD 54.6 fl (35.1-43.9); Red Blood Count 3.93 M/mm3 (4.2-5.4); White Blood Count 5.6 K/mm3 (4.4-11.0)
[2023-06-01 17:14] LABS: Color, Urine Yellow (Yellow); Glucose, Dipstick Normal (Normal); Ketone-Dipstick Negative (Negative); Leukocyte Esterase-Dipstick Negative /ul (Negative); Nitrite-Dipstick Negative (Negative); Occult Blood-Urine 25 /ul (Negative); Protein-Dipstick 15 mg/dl (Negative); Specific Gravity, Urine 1.015 (1.002-1.030); Urine Bilirubin Dipstick Negative (Negative); Urine Clarity Clear (Clear); Urine Urobilinogen Normal (Normal)
[2023-06-01 17:21] LABS: Anion Gap 8 (5-15); BUN 44 mg/dL (7-18); BUN/Creat Ratio 30.1 RATIO (10-20); Calcium,Total 9.6 mg/dL (8.5-10.1); Chloride 108 mmol/L (98-107); Creatinine, Serum 1.46 mg/dL (0.55-1.02); EST Glomerular Filtration Rate 37 mL/min (>60); Est Glom Filt Rate - Afr Amer 45 mL/min (>60); Estimated Creatinine Clearance 26.28 ml/min; Glucose 247 mg/dL (74-106); Potassium 4.3 mmol/L (3.5-5.1); Sodium Level 139 mmol/L (136-145)
[2023-06-01 17:25] LABS: Red Blood Cells-Urine 0-5 SEEN /hpf (0-5); Squamous Epithelial Cells - UA 0-5 SEEN /hpf (5-10)
[2023-06-01 17:26] LABS: Bacteria RARE /hpf (None Seen)
[2023-06-01 18:00] VITALS: BP 143/78; PULSE 64; RESP 18; TEMP 37; O2SAT 98
[2023-06-01] MEDS: HYDROcodone Bitartrate/Apap 5/325 Tablet PO (18:43)
[2023-06-01] MEDS: Lidocaine 5% Patch 1 PATCH TOPICAL (18:43)
[2023-06-01 18:50] VITALS: TEMP 36.9
--- NOTE | 2023-06-01 18:51 | ED.RN ---
meds to bed slip sent
== END 2023-06-01 18:58 | disposition home or self-care (01) ==
PROVIDERS: Emergency Provider Emergency Medicine; Visit Provider Emergency Medicine
DX: R10.9 Unspecified abdominal pain (principal); I50.9 Heart failure, unspecified; Z95.5 Presence of coronary angioplasty implant and graft
CPT/HCPCS: 74176; 80048; 81001; 85025; 99284; A4216